=== PATIENT | female | born 1995 | race African-American/Black ===

== ENCOUNTER 2016-06-01 02:56 | Emergency (ER) | payer MEDICAID, OTHER ==
[~2016-06-01] VITALS: Ht 167.6 cm; Wt 68.0 kg
[~2016-06-01 02:56] MED LIST: ACHD5005 PO; CPR500T PO; CYCL10TA9 PO; DICY10CA26 PO; DOXY100C2 PO; FLUC200T45 PO; GUAI120S36 PO; HYDR25CA5 PO; IBP600T1 PO; IBUP800T26 PO; LORA0.5T; METR500T PO; METR500T21 PO; NORG1TAB15; OCP; PHEN200T27 PO; PHENTERMINE; PREN-115 PO; PREN1TAB71 PO; SERT50TA PO; TRAM50TA2 PO; [UNRECOGNIZED DRUG - OTHER]
[2016-06-01 04:48] LABS: BILIRUBIN,URINE NEGATIVE (NEGATIVE); KETONES,URINE 1+ (NEGATIVE); LEUKOCYTE ESTERASE ,URINE 1+ (NEGATIVE); NITRITE,URINE NEGATIVE (NEGATIVE); PH,URINE 5 (5-9); PROTEIN,URINE 2+ (NEGATIVE); UROBILINOGEN,URINE 1 MG/DL (NORMAL)
[2016-06-01 04:58] LABS: SQUAMOUS EPITHELIAL CELL,UR RARE /HPF; WBC,URINE 0-2 /HPF
[2016-06-01] MEDS ORDERED: cefTRIAXone 1 GM (ROCEPHIN) VIAL IM ONE (06:00)
[2016-06-01] MEDS ORDERED: LIDOCAINE 1% INJ 20 ML (XYLOCAINE) VIAL INJ ONE (06:00)
--- NOTE | 2016-06-01 06:20 | ED GU-Female ---
General Chief Complaint: -Female Stated Complaint: POSS ANXIETY ATTACK,BODY GOING NUMB,SOB Nursing Sepsis Screen: No Definite Risk Source: patient, family Exam Limitations: intoxication History of Present Illness Time seen by provider: 04:17 Initial Comments Here with or significant other reports that she has been very anxious. Patient had difficulty with describing her complaint. She has twitching-type movements and was unable to state exactly what she was here before for a while but then states that she was having difficulty with pain and was anxious. States that she is status post delivery last Monday. Patient denies any drugs initially. Denies any injury, chest pain or breathing problems. Patient appears to be under the influence of drugs. Timing/Duration: this morning Severity/Quality: mild Location: suprapubic Associated Symptoms: abdominal painNo fever/chills, No nausea/vomiting Allergies and Home Medications Allergies Coded Allergies: iodine (Unverified Allergy, Unknown, 08/09/13) Home Medications No Active Prescriptions or Reported Meds Constitutional: see HPINo chills, No fever Respiratory: no symptoms reportedNo dyspnea on exertion, No short of breath Cardiovascular: no symptoms reportedNo chest pain, No edema Gastrointestinal: see HPINo diarrhea, No nausea, No vomiting Genitourinary: denies dysuria, pain Musculoskeletal: no symptoms reported Skin: no symptoms reported Psychiatric/Neurological: See HPI Past Erkvdek-Jzagas-Awifrt Hx Patient Social History Recreational Drug Use: Yes (methamphetamine) Type Used: Cigarettes Recent Foreign Travel: No Contact w/Someone Who Travel: No Recent Infectious Disease Expo: No Immunizations Up To Date Tetanus Booster (TDap): Less than 5yrs PED Vaccines UTD: Yes Date of Influenza Vaccine: Feb 05, 2013 Surgeries HX Surgeries: Yes (WISDOM TEETH EXTRACTED 2008) Respiratory Hx Respiratory Disorders: Yes Respiratory Disorders: Asthma Cardiovascular Hx Cardiac Disorders: No Neurological Hx Neurological Disorders: No Reproductive System Hx Reproductive Disorders: No Sexually Transmitted Disease: Yes HIV/AIDS: No Female Reproductive Disorders: Denies, Ovarian Cyst Genitourinary Hx Genitourinary Disorders: No Gastrointestinal Hx Gastrointestinal Disorders: Yes Gastrointestinal Disorders: Chronic Constipation Musculoskeletal Hx Musculoskeletal Disorders: Yes (CARPEL TUNNEL IN RIGHT WRIST) Endocrine Hx Endocrine Disorders: Yes (ENLARGED THYROID) HEENT HX ENT Disorders: No Cancer Hx Cancer: No Psychosocial Hx Psychiatric Problems: Yes (OVERDOSED ON XANAX 08/13/15) Behavioral Health Disorders: Anxiety, Suicide Attempts, Depression Integumentary HX Skin/Integumentary Disorder: No Blood Transfusions Hx Blood Disorders: No Adverse Reaction to a Blood Tr: No Reviewed Nursing Assessment Reviewed/Agree w Nursing PMH: Yes Family Medical History Family Medial History: BLOOD CLOTS 19 MOTHER Drug abuse 19 MOTHER FHx: cancer 19 MOTHER Myocardial infarction PACEMAKER IN PLACE 19 MOTHER Physical Exam Vital Signs Vital Sign - Last 12Hours 06/01/16 03:55 Temp 97.5 Pulse 87 Resp 20 B/P 136/87 Pulse Ox 99 O2 Delivery Room Air Capillary Refill : Less Than 3 Seconds General Appearance: WD/WN no apparent distress Neck: full range of motion supple Cardiovascular: regular rate, rhythm no murmur Respiratory: lungs clear normal breath sounds Gastrointestinal: non tender soft Back: normal inspection no CVA tenderness no vertebral tenderness Extremities: normal range of motion non-tender Neurologic/Psychiatric: oriented x 3 other (patient is sleepy but answers questions when waking.) Skin: normal color warm/dry Progress/Results/Core Measures Results/Orders Lab Results Laboratory Tests Test 06/01/16 04:39 Range/Units Ur Tricyclic Antidepressants Screen NEGATIVE NEGATIVE Urine Amphetamines Screen POSITIVE H NEGATIVE Urine Bacteria FEW H /HPF Urine Barbiturates Screen NEGATIVE NEGATIVE Urine Benzodiazepines Screen NEGATIVE NEGATIVE Urine Bilirubin NEGATIVE NEGATIVE Urine Cannabinoids Screen NEGATIVE NEGATIVE Urine Casts NONE /LPF Urine Clarity CLEAR Urine Cocaine Screen NEGATIVE NEGATIVE Urine Color YELLOW Urine Crystals NONE /LPF Urine Culture Indicated YES Urine Glucose (UA) NEGATIVE NEGATIVE Urine Ketones 1+ H NEGATIVE Urine Leukocyte Esterase 1+ H NEGATIVE Urine Methadone Screen NEGATIVE NEGATIVE Urine Methamphetamines Screen POSITIVE H NEGATIVE Urine Mucus MODERATE H /LPF Urine Nitrite NEGATIVE NEGATIVE Urine Opiates Screen NEGATIVE NEGATIVE Urine Oxycodone Screen NEGATIVE NEGATIVE Urine Phencyclidine Screen NEGATIVE NEGATIVE Urine Test POSITIVE NEGATIVE Urine Propoxyphene Screen NEGATIVE NEGATIVE Urine Protein 2+ H NEGATIVE Urine RBC 0-2 /HPF Urine RBC (Auto) 4+ H NEGATIVE Urine Specific [place] 1.025 H 1.016-1.022 Urine Squamous Epithelial Cells RARE /HPF Urine Urobilinogen 1 NORMAL MG/DL Urine WBC 0-2 /HPF Urine pH 5 5-9 My Orders Orders-LEANDRO STEVENS MD Drug Screen Stat (Urine) (06/01/16 04:17) Ua Culture If Indicated (06/01/16 04:17) Urine Bedside (06/01/16 04:18) Hcg,Qualitative Urine (06/01/16 04:43) Urine Culture (06/01/16 04:39) Ceftriaxone Injection (Rocephin Injectio (06/01/16 06:00) Lidocaine 1% Injection (Xylocaine 1% Inj (06/01/16 06:00) Vital Signs/I&O Vital Sign - Last 12Hours 06/01/16 03:55 Temp 97.5 Pulse 87 Resp 20 B/P 136/87 Pulse Ox 99 O2 Delivery Room Air Blood Pressure Mean: 103 Progress Note : Progress Note Seen and evaluated. UA and UDS ordered. Patient has positive . We did verify that patient had delivery at [facility] on 05/23/16. Patient was apparently positive for methamphetamine at that time per report. Patient does not have baby with her and she reportedly has transferred care of the child to someone else per records. Patient now admits to snorting and/or smoking methamphetamine and she is not sure of how much but states it was a medium amount. Patient is able to relay where she is at and when coaxed, remembers that she was having some dysuria. Otherwise denies complaints. UA may be positive for UTI. We will treat this. Rocephin 1 g IM given. Patient does have a history of pelvic pain and bacterial vaginosis. We will treat outpatient with Flagyl. Discharged home with return precautions. Patient verbalize understanding of instructions and agreement with plan. Departure Impression Impression: Primary Impression: Suprapubic abdominal pain Additional Impressions: Urinary tract infection Qualified Code: N30.00 - Acute cystitis without hematuria Methamphetamine abuse Disposition: HOME, SELF-CARE Condition: Stable Departure-Patient Inst. Referrals: [facility] (PC[facility]) Primary Care Physician NIURKA SMITH MD (Family) Primary Care Physician Patient Instructions: Acute Abdomen (Belly Pain), Adult (DC), Methamphetamine, Urinary Tract Infection, Adult (DC) Add. Discharge Instructions: All discharge instructions reviewed with patient and/or family. Voiced understanding. Stop using methamphetamine. Take medications as directed. Drink plenty of fluids. Follow-up with your doctor this week for recheck and further evaluation. Return for worse pain, fever, vomiting, weakness, breathing problems or other concerns as needed. You have prescriptions at [facility] for pick. Take those medications as prescribed. Scripts Metronidazole 500 Mg [id number] Mg PO BID #14 TAB Prov:LEANDRO STEVENS MD 06/01/16 Cephalexin 500 Mg [id number] Mg PO TID #21 TAB Prov:LEANDRO STEVENS MD 06/01/16 LEANDRO STEVENS MD Jun 01, 2016 06:19
[2016-06-01] MEDS ORDERED: METR500T21 PO (06:29)
[2016-06-01] MEDS ORDERED: CEPH500T PO (06:29)
[2016-06-01 07:28] VITALS: BP 120/74
== END 2016-06-01 07:28 | disposition home or self-care (01) ==
LOC: EDUNIT# 02:56 → ER 02:58
DX: R10.2 Pelvic and perineal pain (principal); N39.0 Urinary tract infection, site not specified; F15.10 Other stimulant abuse, uncomplicated
CPT/HCPCS: 51701; 80306; 81000; 84703; 87088; 96372; 99284

== ENCOUNTER → 2016-06-02 | Outpatient (CLI) | payer SELFPAY ==
[~2016-06-02] MED LIST changes: +CEPH500T PO
[2016-06-02 16:29] VITALS: BP 121/80
== END ==
LOC: FNS 16:48
PROVIDERS: ATTEND Emergency Medicine
DX: Z02.89 Encounter for other administrative examinations (principal)

== ENCOUNTER 2017-05-22 18:50 | Outpatient (CLI) | payer SELFPAY ==
[~2017-05-22] VITALS: Ht 162.6 cm; Wt 97.1 kg
[2017-05-22 18:47] VITALS: BP 130/66
[2017-05-22 19:40] LABS: BILIRUBIN,URINE NEGATIVE (NEGATIVE); CLARITY,URINE CLEAR; COLOR,URINE YELLOW; GLUCOSE, URINE (UA) NEGATIVE (NEGATIVE); KETONES,URINE NEGATIVE (NEGATIVE); LEUKOCYTE ESTERASE ,URINE 1+ (NEGATIVE); NITRITE,URINE NEGATIVE (NEGATIVE); PH,URINE 7 (5-9); PROTEIN,URINE NEGATIVE (NEGATIVE); UROBILINOGEN,URINE NORMAL (NORMAL)
[2017-05-22 19:48] LABS: BACTERIA,URINE TRACE /HPF; SQUAMOUS EPITHELIAL CELL,UR 0-2 /HPF; WBC,URINE 0-2 /HPF
[2017-05-22 19:54] LABS: AMPHETAMINE SCREEN, URINE NEGATIVE (NEGATIVE); BARBITURATE SCREEN URINE NEGATIVE (NEGATIVE); BENZODIAZEPINES SCREEN URINE NEGATIVE (NEGATIVE); CANNABINOID SCREEN, URINE NEGATIVE (NEGATIVE); COCAINE SCREEN URINE NEGATIVE (NEGATIVE); METHADONE STAT NEGATIVE (NEGATIVE); METHAMPHETAMINE SCREEN URINE S NEGATIVE (NEGATIVE); OPIATE SCREEN URINE NEGATIVE (NEGATIVE); OXYCODONE STAT NEGATIVE (NEGATIVE); PROPOXYPHENE STAT NEGATIVE (NEGATIVE); TRICYCLIC ANTIDEPRESSANTS SCRE NEGATIVE (NEGATIVE)
--- NOTE | 2017-05-23 16:31 | Physician Query-Final Dx ---
PETER ACOSTA 05/23/17 1631: Clinic Account Progress/Dx Physician Query: Please give diagnosis Date of Service May 22, 2017 at 18:50 SUDARSHAN BAÑUELOS MD 05/26/17 1523: Clinic Account Progress/Dx DIAGNOSIS: Diagnosis Contractions in third trimester PETER ACOSTA May 23, 2017 16:31 SUDARSHAN BAÑUELOS MD May 26, 2017 15:23
== END 2017-05-22 19:40 | disposition home or self-care (01) ==
LOC: WSo 18:50 → LDRP 18:50 → WSo 19:40
PROVIDERS: ATTEND Family Medicine
DX: O47.1 False labor at or after 37 completed weeks of gestation (principal); Z3A.39 39 weeks gestation of pregnancy
CPT/HCPCS: 80306; 81000; 87081; 99214

== ENCOUNTER 2017-06-05 21:09 | Inpatient (IN) | payer MEDICAID ==
[~2017-06-05] VITALS: Ht 162.6 cm; Wt 98.0 kg
[~2017-06-05 21:09] MED LIST changes: -DOCU100C37 PO; -FERR325T18 PO; -IBUP-1773 PO; -PREN-8 PO
[2017-06-05 21:56] LABS: BILIRUBIN,URINE NEGATIVE (NEGATIVE); CLARITY,URINE CLEAR; COLOR,URINE YELLOW; GLUCOSE, URINE (UA) NEGATIVE (NEGATIVE); KETONES,URINE NEGATIVE (NEGATIVE); LEUKOCYTE ESTERASE ,URINE 1+ (NEGATIVE); NITRITE,URINE NEGATIVE (NEGATIVE); PH,URINE 6.5 (5-9); PROTEIN,URINE NEGATIVE (NEGATIVE); UROBILINOGEN,URINE NORMAL (NORMAL)
[2017-06-05] MEDS ORDERED: MINERAL OIL CONCENTRATE 99.9% 15 ML UDC TOP PRN (22:00)
[2017-06-05] MEDS ORDERED: CATHETER FLUSH 10 ML SYR IV SCH (22:00)
[2017-06-05 22:05] LABS: BACTERIA,URINE TRACE /HPF; WBC,URINE 0-2 /HPF
[2017-06-05] MEDS ORDERED: D5 LR IV SOLUTION 1,000 ML IV ONE (22:23)
[2017-06-05 22:34] LABS: AMPHETAMINE SCREEN, URINE NEGATIVE (NEGATIVE); BARBITURATE SCREEN URINE NEGATIVE (NEGATIVE); BENZODIAZEPINES SCREEN URINE NEGATIVE (NEGATIVE); CANNABINOID SCREEN, URINE NEGATIVE (NEGATIVE); COCAINE SCREEN URINE NEGATIVE (NEGATIVE); METHADONE STAT NEGATIVE (NEGATIVE); METHAMPHETAMINE SCREEN URINE S NEGATIVE (NEGATIVE); OPIATE SCREEN URINE NEGATIVE (NEGATIVE); OXYCODONE STAT NEGATIVE (NEGATIVE); PROPOXYPHENE STAT NEGATIVE (NEGATIVE); TRICYCLIC ANTIDEPRESSANTS SCRE NEGATIVE (NEGATIVE)
[2017-06-05 22:38] LABS: BASOPHILS % (AUTO) 0 % (0-10); EOSINOPHILS % (AUTO) 0 % (0-10); HEMATOCRIT 35 % (35-52); HEMOGLOBIN 12.5 G/DL (11.5-16.0); LYMPHOCYTES # (AUTO) 2.2 X 10^3 (1.0-4.0); LYMPHOCYTES % (AUTO) 22 % (12-44); MEAN CORPUSCULAR HEMOGLOBIN 29 PG (25-34); MEAN CORPUSCULAR HGB CONC 35 G/DL (32-36); MEAN CORPUSCULAR VOLUME 83 FL (80-99); MEAN PLATELET VOLUME 11.3 FL (7.4-10.4); MONOCYTES # (AUTO) 0.5 X 10^3 (0.0-1.0); MONOCYTES % (AUTO) 5 % (0-12); NEUTROPHILS # (AUTO) 7.2 X 10^3 (1.8-7.8); NEUTROPHILS % (AUTO) 72 % (42-75); PLATELET COUNT 191 10^3/uL (130-400); RED BLOOD COUNT 4.28 10^6/uL (4.35-5.85); RED CELL DISTRIBUTION WIDTH 14.4 % (10.0-14.5); WHITE BLOOD COUNT 9.9 10^3/uL (4.3-11.0)
[2017-06-05] MEDS ORDERED: ZOLPIDEM 5 MG (AMBIEN) TAB ONE (22:43)
[2017-06-05] MEDS ORDERED: ZOLPIDEM 5 MG (AMBIEN) TAB PO ONE (22:45)
[2017-06-05 23:00] VITALS: BP 137/62
[2017-06-06] VITALS (7 sets, daily range): BP systolic 96–127; BP diastolic 51–80
--- NOTE | 2017-06-06 04:06 | History & Physical-OB ---
OB - Chief Complaint & HPI Date/Time Date of Admission: Date of Admission: Jun 05, 2017 at 21:09 Time Seen by Provider: 04:01 Chief Complaint/History OB-Reason for Admission/Chief: Induction of Labor (postdates, severe oligohydramnios) Hx : 5 Hx Para: 4 Hx Last Menstrual Period: 08/19/2016 Expected Date of Delivery: May 26, 2017 Gestational Age in Weeks: 41 Gestational Age in Days: 4 Indication for induction: post dates, maternal discomfort, other (severe oligohydramnios, deepest vertical pocked 0.5 cm, total EMILY = 1.08) Indication for : other ( intolerance) Admission Nurse Assessment Rev: Yes History of Labs Laboratory Tests Test 06/05/17 21:20 06/05/17 22:25 Range/Units Urine Color YELLOW Urine Clarity CLEAR Urine pH 6.5 5-9 Urine Specific [place] 1.015 L 1.016-1.022 Urine Protein NEGATIVE NEGATIVE Urine Glucose (UA) NEGATIVE NEGATIVE Urine Ketones NEGATIVE NEGATIVE Urine Nitrite NEGATIVE NEGATIVE Urine Bilirubin NEGATIVE NEGATIVE Urine Urobilinogen NORMAL NORMAL MG/DL Urine Leukocyte Esterase 1+ H NEGATIVE Urine RBC (Auto) NEGATIVE NEGATIVE Urine RBC NONE /HPF Urine WBC 0-2 /HPF Urine Squamous Epithelial Cells 10-25 H /HPF Urine Crystals NONE /LPF Urine Bacteria TRACE /HPF Urine Casts NONE /LPF Urine Mucus LARGE H /LPF Urine Culture Indicated NO Urine Opiates Screen NEGATIVE NEGATIVE Urine Oxycodone Screen NEGATIVE NEGATIVE Urine Methadone Screen NEGATIVE NEGATIVE Urine Propoxyphene Screen NEGATIVE NEGATIVE Urine Barbiturates Screen NEGATIVE NEGATIVE Ur Tricyclic Antidepressants Screen NEGATIVE NEGATIVE Urine Phencyclidine Screen NEGATIVE NEGATIVE Urine Amphetamines Screen NEGATIVE NEGATIVE Urine Methamphetamines Screen NEGATIVE NEGATIVE Urine Benzodiazepines Screen NEGATIVE NEGATIVE Urine Cocaine Screen NEGATIVE NEGATIVE Urine Cannabinoids Screen NEGATIVE NEGATIVE White Blood Count 9.9 4.3-11.0 10^3/uL Red Blood Count 4.28 L 4.35-5.85 10^6/uL Hemoglobin 12.5 11.5-16.0 G/DL Hematocrit 35 35-52 % Mean Corpuscular Volume 83 80-99 FL Mean Corpuscular Hemoglobin 29 25-34 PG Mean Corpuscular Hemoglobin Concent 35 32-36 G/DL Red Cell Distribution Width 14.4 10.0-14.5 % Platelet Count 191 130-400 10^3/uL Mean Platelet Volume 11.3 H 7.4-10.4 FL Neutrophils (%) (Auto) 72 42-75 % Lymphocytes (%) (Auto) 22 12-44 % Monocytes (%) (Auto) 5 0-12 % Eosinophils (%) (Auto) 0 0-10 % Basophils (%) (Auto) 0 0-10 % Neutrophils # (Auto) 7.2 1.8-7.8 X 10^3 Lymphocytes # (Auto) 2.2 1.0-4.0 X 10^3 Monocytes # (Auto) 0.5 0.0-1.0 X 10^3 Eosinophils # (Auto) 0.0 0.0-0.3 10^3/uL Basophils # (Auto) 0.0 0.0-0.1 10^3/uL Rubella Immune per clinic chart GBS negative per swab collected at hospital 05/26/17 Other labs are pending Allergies and Home Medications Allergies Coded Allergies: iodine (Unverified Allergy, Unknown, 08/09/13) Home Medications Vit W-Ca,Fe,FA(<1 mg) 1 Each Tablet, 1 EACH PO DAILY for 30 Days, #30 Ref 11 Prescribed by: CHRISTIANE TAYLOR on 06/06/17 0540 OB - History Hx of Present Care: Yes Ultrasounds: Abnormal US findings (severe oligo on US 06/05/17; other records from [place] pending at time of H&P) Obstetrical Complications: Other (sporadic care) Medical Complications: None Information Induced Hypertension: No Maternal Gestational Diabetes: No Hemorrhage: Yes (EBL 500 cc with delivery in [address], documented as PPH by Dr. Sorensen) Obstetrical History Hx : 5 Hx Para: 4 Hx # Term Pregnancies: 4 Hx # Pregnancies: 0 Number of Living Children: 4 Hx Termination: No Hx Total # of Abortions (Spona: 1 Hx Multiple Gestation: No Hx Ectopic : No Hx Stillbirth: No Hx Complication: No Hx Induced Hypertens: No Hx Maternal Gestational Diabet: No Hx Hemorrhage: Yes Delivery History Hx Dystocia: No Hx Forceps Assisted Delivery: No Hx Vacuum Extraction Assisted: No Hx Placenta Abnormality: No Hx Distress: No Hx Large For Gestational Age I: No Hx Small for Gestational Age I: No Hx Section: No Hx Vaginal Delivery Post C-Sec: No Hx Blood Disorders: No Adverse Rxn to Tranfusion: No Patient Past Medical History Methamphetamine abuse THC abuse Tobacco abuse Axiety Depression Bacterial Vaginosis Trich Asthma - as child Hx of ETOH abuse Chronic constipation Hx of suicide attempt - Xanax overdose 08/13/15 Social History/Family History HIV/AIDS: No Recent Infectious Disease Expo: No Sexually Transmitted Disease: Yes (2008) Alcohol Use: Past History Recreational Drug Use: Yes (Previously methamphetamine use) Smoking Cessation: Current every day smoker 2nd Hand Smoke Exposure: Yes Significant Family Hx Mother meth addict, also with history of blood clots and uterine and cervical cancer; meth addict Immunizations Hepatitis A: No Hepatitis B: No Tetanus Booster (TDap): Less than 5yrs Date of Influenza Vaccine: Apr 10, 2017 Rubella: immune RPR/VDRL: Unknown GBS Status: Negative HBsAG: Unknown OB - Admission Exam Physical Exam Vitals: Vital Signs 06/05/17 06/06/17 23:00 00:51 Temp 98.9 Pulse 77 Resp 18 B/P (MAP) 127/80 (96) O2 Delivery Room Air HEENT: NCAT Heart: Rhythm Normal Lungs: Clear, Equal Abdomen: Gravid Extremities: Normal Reflexes: Normal Cervical Dilatation: 3cm Effacement: 50% Station: -2 Membranes: Intact Heart Rate: 140's Accelerations: Accelerations Present Decelerations: Prolonged Decelerations Detention Variability: Average (6-25) Contractions on Admission: >10 Minutes Apart Date/Time Contractions Began;: pt unaware of contractions Intensity: Mild Mahajan Scoring Tool (Modified) Dilation (cm): 3-4cm (2) Effacement (%): 31-51% (1) Descent/Station: -2 (1) Cervix Consistency: Soft (2) Cervix Position: Middle/Mid-Position (1) Add 1 point for: Each previous vaginal delivery (1) Subtract 1 point for: Postdate (-1) Mahajan Score: 10 Labs Laboratory Tests Test 06/05/17 21:20 06/05/17 22:25 Range/Units Urine Color YELLOW Urine Clarity CLEAR Urine pH 6.5 5-9 Urine Specific [place] 1.015 L 1.016-1.022 Urine Protein NEGATIVE NEGATIVE Urine Glucose (UA) NEGATIVE NEGATIVE Urine Ketones NEGATIVE NEGATIVE Urine Nitrite NEGATIVE NEGATIVE Urine Bilirubin NEGATIVE NEGATIVE Urine Urobilinogen NORMAL NORMAL MG/DL Urine Leukocyte Esterase 1+ H NEGATIVE Urine RBC (Auto) NEGATIVE NEGATIVE Urine RBC NONE /HPF Urine WBC 0-2 /HPF Urine Squamous Epithelial Cells 10-25 H /HPF Urine Crystals NONE /LPF Urine Bacteria TRACE /HPF Urine Casts NONE /LPF Urine Mucus LARGE H /LPF Urine Culture Indicated NO Urine Opiates Screen NEGATIVE NEGATIVE Urine Oxycodone Screen NEGATIVE NEGATIVE Urine Methadone Screen NEGATIVE NEGATIVE Urine Propoxyphene Screen NEGATIVE NEGATIVE Urine Barbiturates Screen NEGATIVE NEGATIVE Ur Tricyclic Antidepressants Screen NEGATIVE NEGATIVE Urine Phencyclidine Screen NEGATIVE NEGATIVE Urine Amphetamines Screen NEGATIVE NEGATIVE Urine Methamphetamines Screen NEGATIVE NEGATIVE Urine Benzodiazepines Screen NEGATIVE NEGATIVE Urine Cocaine Screen NEGATIVE NEGATIVE Urine Cannabinoids Screen NEGATIVE NEGATIVE White Blood Count 9.9 4.3-11.0 10^3/uL Red Blood Count 4.28 L 4.35-5.85 10^6/uL Hemoglobin 12.5 11.5-16.0 G/DL Hematocrit 35 35-52 % Mean Corpuscular Volume 83 80-99 FL Mean Corpuscular Hemoglobin 29 25-34 PG Mean Corpuscular Hemoglobin Concent 35 32-36 G/DL Red Cell Distribution Width 14.4 10.0-14.5 % Platelet Count 191 130-400 10^3/uL Mean Platelet Volume 11.3 H 7.4-10.4 FL Neutrophils (%) (Auto) 72 42-75 % Lymphocytes (%) (Auto) 22 12-44 % Monocytes (%) (Auto) 5 0-12 % Eosinophils (%) (Auto) 0 0-10 % Basophils (%) (Auto) 0 0-10 % Neutrophils # (Auto) 7.2 1.8-7.8 X 10^3 Lymphocytes # (Auto) 2.2 1.0-4.0 X 10^3 Monocytes # (Auto) 0.5 0.0-1.0 X 10^3 Eosinophils # (Auto) 0.0 0.0-0.3 10^3/uL Basophils # (Auto) 0.0 0.0-0.1 10^3/uL OB - Assessment/Plan/Diagnosis Assessment Assessment: other (severe oligohydramnios) Plan Plan: Section (spoke with Dr. Adrian at 0430, given severe oligo, decelerations, will give IV fluid bolus and plan to follow scheduled 0730 case unless patient has further decels, in which case will proceed with surgical delivery immediately) Other Plan -patient came to clinic for OB intake visit with this provider; in this area she had one previous visit with Dr. Bañuelos -pt reports she was up from [place] visiting her mother; she does not have custody of her other four children as she willingly gave custody to her and terminated her rights (per patient) - is not FOB, pt reports he had a vasectomy before she got -pt with long history of meth abuse, including during this , but reports having stopped in March 2017 and has been clean since then -Limited OB US showed EMILY 1.08 yesterday afternoon; patient was contact and told to return to hospital and that she would be monitored until her induction could be initiated in the AM -overnight patient with several prolonged decels lasting 2-4 minutes with lowest point being ~50 bmp and gradual return to baseline -Dr. Adrian OB commercial collections driver; contacted, given patient history and strip reviewed, including decels and patient history as well as severe oligo; will plan on surgical delivery to follow 0730 case this AM, sooner if needed based on status -risks and benefits of surgical delivery were discussed with patient, who is agreeable to proceeding with surgical delivery as it is highly unlikely that her fetus will tolerate labor contractions Discharge Diagnosis Diagnosis: Post dates at 41 4/7 wks by LMP Sporadic Care Methamphetamine use during first and second trimesters Tobacco Abuse Anxiety Depression Bacterial Vaginosis Asthma Hx of alcohol abuse - remote history Hx of suicide attempt - August 2015 Copy Copies To 1: SUDARSHAN BAÑUELOS MD; VILMA ADRIAN MARGARET E DO Jun 06, 2017 04:06
[2017-06-06] MEDS ORDERED: LACTATED RINGERS 1,000 ML IV ONE ×4 (04:45→08:47)
[2017-06-06] MEDS ORDERED: PREN-8 PO (05:40)
[2017-06-06] MEDS ORDERED: D5 LR IV SOLUTION 1,000 ML IV SCH ×2 (06:00→10:17)
[2017-06-06] MEDS ORDERED: METOCLOPRAMIDE INJ 10 MG/2 ML (REGLAN) ONE (07:29)
[2017-06-06] MEDS ORDERED: CITRIC ACID/SOB CIT (BICITRA) 30 ML UDC ONE (07:29)
[2017-06-06] MEDS ORDERED: FAMOTIDINE 20MG/2ML IV (PEPCID) ONE (07:29)
[2017-06-06] MEDS ORDERED: morphine PF (DURAMORPH) 10 MG/10 ML AMP ONE (08:19)
[2017-06-06] MEDS ORDERED: OXYTOCIN/NORMAL SALINE 0 ML IV ONE (08:19)
--- NOTE | 2017-06-06 08:41 | Progress Note-Pre Operative ---
Pre-Operative Progress Note H&P Reviewed The H&P was reviewed, patient examined and no changes noted. Date Seen by Provider: Jun 06, 2017 Time Seen by Provider: 08:35 Date H&P Reviewed: Jun 06, 2017 Time H&P Reviewed: 08:30 Pre-Operative Diagnosis: Oligohydramnios, fetl decelerations, unfavorable cervix VILMA ADRIAN DO Jun 06, 2017 08:41
[2017-06-06] MEDS ORDERED: ceFAZolin 1,000 MG (ANCEF) VIAL ONE (08:47)
[2017-06-06] MEDS ORDERED: NS (IVPB) 50 ML ONE (08:47)
[2017-06-06] MEDS: LACTATED RINGERS 1,000 ML IV PRN ×2 (08:50→09:59)
[2017-06-06] MEDS ORDERED: METOCLOPRAMIDE INJ 10 MG/2 ML (REGLAN) IVP SCH (09:15)
[2017-06-06] MEDS ORDERED: ceFAZolin INJECTION 1,000 MG in NS (IVPB) 50 ML IV ONE (09:15)
[2017-06-06] MEDS ORDERED: ANTACID SUSP 30 ML UDC (MYLANTA) PO PRN (09:15)
[2017-06-06] MEDS ORDERED: OXYTOCIN/NORMAL SALINE 500 ML IV ONE (09:37)
[2017-06-06] MEDS ORDERED: KETOROLAC 30 MG/ML VIAL ONE (09:37)
[2017-06-06] MEDS: KETOROLAC 30 MG/ML VIAL IVP SCH ×2 (09:40→15:47)
[2017-06-06] MEDS ORDERED: ONDANSETRON 4 MG/2 ML (SDV) Z0FRAN ONE (09:44)
[2017-06-06] MEDS ORDERED: LACTATED RINGERS 1,000 ML IV SCH (10:05)
[2017-06-06] MEDS ORDERED: ONDANSETRON 4 MG/2 ML (SDV) Z0FRAN IV PRN (10:15)
[2017-06-06] MEDS ORDERED: NALOXONE 0.4 MG/ML 1 ML (NARCAN) VIAL IM PRN (10:15)
[2017-06-06] MEDS ORDERED: METOCLOPRAMIDE INJ 10 MG/2 ML (REGLAN) IV PRN (10:15)
[2017-06-06] MEDS ORDERED: diphenhydrAMINE 50 MG/ML INJ (BENADRYL) IV PRN (10:15)
[2017-06-06] MEDS ORDERED: OXYTOCIN/NORMAL SALINE 500 ML IV SCH (10:17)
[2017-06-06] MEDS ORDERED: ONDANSETRON 4 MG/2 ML (SDV) Z0FRAN IVP PRN (10:30)
[2017-06-06] MEDS ORDERED: TETANUS,DIPTH,PERTUSS P/F (BOOSTRIX) 0.5 ML VIAL IM SCH (10:30)
[2017-06-06] MEDS ORDERED: HYDROmorphone (DILAUDID) 2 MG/ML VIAL IVP PRN (10:30)
[2017-06-06] MEDS ORDERED: MEASLES,MUMPS,RUBELLA 1 EA INJ SC SCH (10:30)
--- NOTE | 2017-06-06 10:32 | Cesarean Section Operative ---
Procedure Procedure Note Pre-operative Diagnosis: Veronica Christiansen is a 22 /Para 5 / 4, Gestational Age 41 4/7 weeks, severe oligohydramnios, decelerations ( spontaneous), non favorable cervix. Post-operative Diagnosis: same Procedure: Primary low transverse section Physician: VILMA ADRIAN Tanyard Worker: Katie Francis DO Estimated blood loss: mL Disposition: stable Findings: Viable male , Apgars8/9, weight 8#9, intact placenta, 3vc, normal appearing uterus, tubes, and ovaries. Indications:Veronica Christiansen is a 22 /Para 5 / 4,Gestational Age 41 4/ 7 weeks for primary section due to severe oligohydramnios and decelerations, non favorable cervix. She has been seen at [facility] for care only the last few weeks. She started care in [place] and presented to [place] very late in . Apparently she had not had a anatomy survey so had this day before yesterday. This showed appropriate dating and EMILY < 1. MVP was < 1. She was admitted with plan to proceed with induction this morning. However, prior to induction, she began having spontaneous decelerations. Her cervix was not favorable. Decision was made to proceed with section and I was consulted. Procedure Details: The patient was seen in pre-op and the procedure was discussed with the patient in full, including the risks, benefits, and alternatives. All questions were answered. The patient was taken to the operating room and a time out was performed, verifying patient and procedure. After spinal anesthesia was placed by our anesthesia colleagues, the patient was placed in the dorsal supine with leftward tilt for uterine displacement.~ Her abdomen was then prepped and draped in the typical sterile fashion. A Pfannenstiel skin incision was made using a scalpel and carried down through the underlying fascia. The fascia was incised in the midline and tented up using Phylicia clamps. On both the inferior and superior fascia side the rectus muscle was dissected off bluntly and sharply using Fitch scissors. The peritoneum was identified and entered bluntly in the midline. This was then stretched laterally using manual strength. After entering the abdominal cavity and confirming lack of intraperitoneal adhesions, a large Yury retractor was placed and the lower uterine segment was visualized. ~ A scalpel was utilized to make a low transverse uterine incision. Amniotomy was performed with an Allis clamp with return of thick green fluid. The 's head was grasped and brought to the level of the incision. Fundal pressure was applied and was delivered without difficulty. Silastic suction was used to assist in the delivery of the head. After the umbilical cord was clamped and cut, the was immediately handed off to the pediatric staff. A sample of cord blood was then obtained. The placenta was delivered intact via uterine massage. The uterus was cleared of all clots and debris. The uterine incision was closed using 0 Vicryl in a running locked fashion. A second imbricated layer was placed using 0 Vicryl in a running fashion as well. The uterus was flexed forward and the posterior rectouterine space was inspected and cleared of all clots and debris. Again the hysterotomy site was examined and hemostasis was observed. The bilateral tubes and ovaries appeared normal. The abdominal gutters were cleared of all clots and debris. A final check of the uterine incision showed it to be hemostatic. The abdomen was copiously irrigated. Intercede was placed over the incision. The peritoneum was closed using 3-0 Vicryl in a running fashion. the rectus muscles were reapproximated with a figure of eight stitch of 3-0 vicryl. The fascia was closed with 0 Vicryl in a running fashion. The subcutaneous space was hemostatic, and irrigated. The subcutaneous space was closed with 3-0 Vicryl in several single interrupted stitches. The skin was then closed using 4- 0 Monocryl in a running subcuticular fashion. The skin edges were reapproximated together and were hemostatic. A pressure dressing was applied. All sponge, lap and needle counts were correct at the end of the procedure per nursing. Vitals - Labs Vital Signs - I&O Vital Signs Date Time Temp Pulse Resp B/P (MAP) Pulse Ox O2 Delivery O2 Flow Rate FiO2 06/06/17 04:45 98.5 71 18 119/59 (79) Non Rebreather 10.00 06/06/17 03:30 Non Rebreather 10.00 06/06/17 00:51 98.9 77 18 127/80 (96) 06/05/17 23:00 97.8 83 18 137/62 (87) Room Air I & O 06/06/17 07:00 Intake Total 2000 ml Balance 2000 ml Labs Laboratory Tests 06/05/17 21:20: Urine Color YELLOW, Urine Clarity CLEAR, Urine pH 6.5, Urine Specific [place] 1.015L, Urine Protein NEGATIVE, Urine Glucose (UA) NEGATIVE, Urine Ketones NEGATIVE, Urine Nitrite NEGATIVE, Urine Bilirubin NEGATIVE, Urine Urobilinogen NORMAL, Urine Leukocyte Esterase 1+H, Urine RBC (Auto) NEGATIVE, Urine RBC NONE , Urine WBC 0-2, Urine Squamous Epithelial Cells 10-25H, Urine Crystals NONE, Urine Bacteria TRACE, Urine Casts NONE, Urine Mucus LARGEH, Urine Culture Indicated NO, Urine Opiates Screen NEGATIVE, Urine Oxycodone Screen NEGATIVE, Urine Methadone Screen NEGATIVE, Urine Propoxyphene Screen NEGATIVE, Urine Barbiturates Screen NEGATIVE, Ur Tricyclic Antidepressants Screen NEGATIVE, Urine Phencyclidine Screen NEGATIVE, Urine Amphetamines Screen NEGATIVE, Urine Methamphetamines Screen NEGATIVE, Urine Benzodiazepines Screen NEGATIVE, Urine Cocaine Screen NEGATIVE, Urine Cannabinoids Screen NEGATIVE 06/05/17 22:25: White Blood Count 9.9, Red Blood Count 4.28L, Hemoglobin 12.5, Hematocrit 35, Mean Corpuscular Volume 83, Mean Corpuscular Hemoglobin 29, Mean Corpuscular Hemoglobin Concent 35, Red Cell Distribution Width 14.4, Platelet Count 191, Mean Platelet Volume 11.3H, Neutrophils (%) (Auto) 72, Lymphocytes (%) (Auto) 22 , Monocytes (%) (Auto) 5, Eosinophils (%) (Auto) 0, Basophils (%) (Auto) 0, Neutrophils # (Auto) 7.2, Lymphocytes # (Auto) 2.2, Monocytes # (Auto) 0.5, Eosinophils # (Auto) 0.0, Basophils # (Auto) 0.0 VILMA ADRIAN DO Jun 06, 2017 10:32
[2017-06-06] MEDS ORDERED: CATHETER FLUSH 10 ML SYR IV SCH (14:00)
[2017-06-06] MEDS ORDERED: IBUPROFEN 600 MG (MOTRIN) TAB PO ONE (21:08)
[2017-06-06] MEDS: DOCUSATE SODIUM 100 MG (COLACE) CAP PO SCH (21:34)
[2017-06-06] MEDS: IBUPROFEN 600 MG (MOTRIN) TAB PO SCH (21:34)
[2017-06-06] MEDS: HYDROcodone/APAP 5 MG/325 MG (LORTAB) TAB PO PRN (21:36)
[2017-06-06] MEDS ORDERED: diphenhydrAMINE 25 MG TAB (BENADRYL) PO PRN (23:15)
[2017-06-07 00:25] VITALS: BP 115/70
[2017-06-07] MEDS ORDERED: IBUPROFEN 600 MG (MOTRIN) TAB PO ONE (03:15)
[2017-06-07] MEDS: IBUPROFEN 600 MG (MOTRIN) TAB PO SCH ×4 (04:48→23:00)
[2017-06-07 04:49] VITALS: BP 110/70
[2017-06-07 06:28] LABS: BASOPHILS % (AUTO) 0 % (0-10); EOSINOPHILS # (AUTO) 0.1 10^3/uL (0.0-0.3); EOSINOPHILS % (AUTO) 1 % (0-10); HEMATOCRIT 27 % (35-52); HEMOGLOBIN 9.2 G/DL (11.5-16.0); LYMPHOCYTES # (AUTO) 2.1 X 10^3 (1.0-4.0); LYMPHOCYTES % (AUTO) 24 % (12-44); MEAN CORPUSCULAR HEMOGLOBIN 29 PG (25-34); MEAN CORPUSCULAR HGB CONC 34 G/DL (32-36); MEAN CORPUSCULAR VOLUME 84 FL (80-99); MEAN PLATELET VOLUME 11.5 FL (7.4-10.4); MONOCYTES # (AUTO) 0.5 X 10^3 (0.0-1.0); MONOCYTES % (AUTO) 6 % (0-12); NEUTROPHILS % (AUTO) 70 % (42-75); PLATELET COUNT 139 10^3/uL (130-400); RED BLOOD COUNT 3.22 10^6/uL (4.35-5.85); RED CELL DISTRIBUTION WIDTH 14.3 % (10.0-14.5); WHITE BLOOD COUNT 8.6 10^3/uL (4.3-11.0)
[2017-06-07 08:00] VITALS: BP 102/42
[2017-06-07] MEDS: DOCUSATE SODIUM 100 MG (COLACE) CAP PO SCH ×2 (08:12→19:40)
[2017-06-07] MEDS: PRENATAL VITAMIN 1 EA TAB PO SCH ×2 (08:12→19:41)
--- NOTE | 2017-06-07 08:31 | Postpartum Progress Note ---
Post Op Post-operative Day #1 s/p PLTCS oligohydramnios, decelerations, not in labor Patient apparently left the floor last night and got locked out of the building (did not tell RN she was leaving). Still had IV She then had to walk around the building in the cold to get in through the ED. She Then took a shower (had not been cleared) and bandage was soaked and then bleeding. RN placed pressure dressing. Patient was sleeping and would not wake when I went to examine her and the next time I tried, she was off the floor again. Subjective: Patient is without complaints. Ambulating, voiding after banerjee removed. Tolerating a regular diet without nausea or vomiting. Normal lochia. Pain is well controlled with oral pain medications. Passing flatus. Objective: Laboratory Tests Test 06/07/17 06:01 Range/Units White Blood Count 8.6 4.3-11.0 10^3/uL Red Blood Count 3.22 L 4.35-5.85 10^6/uL Hemoglobin 9.2 #L 11.5-16.0 G/DL Hematocrit 27 L 35-52 % Mean Corpuscular Volume 84 80-99 FL Mean Corpuscular Hemoglobin 29 25-34 PG Mean Corpuscular Hemoglobin Concent 34 32-36 G/DL Red Cell Distribution Width 14.3 10.0-14.5 % Platelet Count 139 130-400 10^3/uL Mean Platelet Volume 11.5 H 7.4-10.4 FL Neutrophils (%) (Auto) 70 42-75 % Lymphocytes (%) (Auto) 24 12-44 % Monocytes (%) (Auto) 6 0-12 % Eosinophils (%) (Auto) 1 0-10 % Basophils (%) (Auto) 0 0-10 % Neutrophils # (Auto) 6.0 1.8-7.8 X 10^3 Lymphocytes # (Auto) 2.1 1.0-4.0 X 10^3 Monocytes # (Auto) 0.5 0.0-1.0 X 10^3 Eosinophils # (Auto) 0.1 0.0-0.3 10^3/uL Basophils # (Auto) 0.0 0.0-0.1 10^3/uL Vital Sign - Last 12Hours 06/06/17 06/07/17 06/07/17 21:30 00:25 04:49 Temp 97.0 98.0 98.4 Pulse 86 71 88 Resp 18 18 18 B/P (MAP) 111/67 (82) 115/70 (85) 110/70 (83) Pulse Ox 100 97 99 Intake and Output 06/07/17 00:00 Intake Total 1500 ml Output Total 300 ml Balance 1200 ml Physical Exam: General - Alert and oriented, no apparent distress Abdomen - Soft, appropriately tender to palpation, non-distended, fundus firm at umbilicus Incision - clean, dry and intact; no erythema or induration, no drainage Extremities - no edema, negative Abby's bilaterally Assessment: 1. post-operative day # 1, status post PLTCS. Recovering well, hemodynamically stable 2. Acute blood loss anemia, iron replaced Plan: Routine post-operative care. Encourage breast feeding. Encourage ambulation. VTE prophylaxis: SCDs. Ferrous sulfate supplementation. Plan for discharge tomorrow Vitals - Labs Vital Signs - I&O Vital Signs Date Time Temp Pulse Resp B/P (MAP) Pulse Ox O2 Delivery O2 Flow Rate FiO2 06/07/17 04:49 98.4 88 18 110/70 (83) 99 06/07/17 00:25 98.0 71 18 115/70 (85) 97 06/06/17 21:30 97.0 86 18 111/67 (82) 100 06/06/17 16:40 60 20 96/51 (66) 99 Room Air 06/06/17 15:50 97.6 63 18 100/60 (73) 98 Room Air 06/06/17 13:35 97.2 63 20 109/53 (71) 99 Room Air 06/06/17 11:45 98.5 80 20 117/62 (80) Non Rebreather 10.00 I & O 06/07/17 07:00 Intake Total 2750 ml Output Total 1150 ml Balance 1600 ml Labs Laboratory Tests 06/07/17 06:01: White Blood Count 8.6, Red Blood Count 3.22L, Hemoglobin 9.2#L, Hematocrit 27L, Mean Corpuscular Volume 84, Mean Corpuscular Hemoglobin 29, Mean Corpuscular Hemoglobin Concent 34, Red Cell Distribution Width 14.3, Platelet Count 139, Mean Platelet Volume 11.5H, Neutrophils (%) (Auto) 70, Lymphocytes (%) (Auto) 24 , Monocytes (%) (Auto) 6, Eosinophils (%) (Auto) 1, Basophils (%) (Auto) 0, Neutrophils # (Auto) 6.0, Lymphocytes # (Auto) 2.1, Monocytes # (Auto) 0.5, Eosinophils # (Auto) 0.1, Basophils # (Auto) 0.0 VILMA ADRIAN DO Jun 07, 2017 08:31
[2017-06-07] MEDS: FERROUS SULF 325 MG (IRON) TAB PO SCH ×2 (11:06→19:43)
[2017-06-07] MEDS: HYDROcodone/APAP 5 MG/325 MG (LORTAB) TAB PO PRN ×2 (11:06→19:40)
[2017-06-07] MEDS: ENOXAPARIN 40 MG/0.4 ML (LOVENOX) SYR SC SCH (11:07)
[2017-06-07 12:00] VITALS: BP 129/81
--- NOTE | 2017-06-07 12:59 | Anesthesia-Regional Post-Op ---
Regional Patient Condition Mental Status: Alert, Oriented x3 Circulation: Same as Pre-Op Headache: Absent Sensation: Full Recovery Motor Block: Absent Post Op Complications Complications None Follow Up Care/Instructions Patient Instructions None needed. Anesthesia/Patient Condition Patient is doing well, no complaints, stable vital signs, no apparent adverse anesthesia problems. GUERO FOSTER DO Jun 07, 2017 12:59
[2017-06-07] MEDS ORDERED: ACHD5005 PO (17:08)
[2017-06-07] MEDS ORDERED: IBUP-1773 PO (17:08)
[2017-06-07] MEDS ORDERED: DOCU100C37 PO (17:08)
[2017-06-07] MEDS ORDERED: FERR325T18 PO (17:08)
[2017-06-07 17:30] VITALS: BP 113/76
[2017-06-07] MEDS: KETOROLAC 30 MG/ML VIAL IVP SCH ×2 (21:14→21:16)
[2017-06-07 23:00] VITALS: BP 117/68
[2017-06-08 05:57] VITALS: BP 110/69
[2017-06-08] MEDS: IBUPROFEN 600 MG (MOTRIN) TAB PO SCH (05:57)
[2017-06-08] MEDS: HYDROcodone/APAP 5 MG/325 MG (LORTAB) TAB PO PRN (06:04)
--- NOTE | 2017-06-08 06:20 | Discharge Inst-Women's Service ---
Discharge Inst-Women's Serv Depart Medication/Instructions New, Converted or Re-Newed RX: RX on Chart Instructions no lifting over 25 lbs, no driving for one week, nothing in the vagina for 6 weeks, keep incision clean and dry Final Diagnosis oligohydramnios decelerations/ intolerance to labor meconium fluid acute blood loss anemia primary section Consults/Follow Up Additional Follow Up: Yes (1 week for incision check with [facility], 6 weeks pp exam with [facility]) Activity Activity: Activity as Tolerated Driving Instructions: No Driving for 1 Week NO SMOKING: NO SMOKING Nothing Inside Vagina: No Douching, No [place], No Tampons Diet Discharge Diet: No Restrictions Symptoms to Report to DrHermelindo: Bleeding Excessive, Pain Increased, Fever Over 101 Degrees F, Vaginal Bleeding Increase, Cramps in Feet or Legs, Vaginal Discharge Foul For Any Problems or Questions: Contact Your Physician Skin/Wound Care Infection Signs and Symptoms: Increased Redness, Foul Odor of Wound, Increased Drainage, Skin Itchy or Has a Rash, Increased Swelling, Temperature Above 101 F Operative Area Clean and Dry: Keep Incision Clean/Dry Stitches/Kvng/Dermabond: Dermabond Bathing Instructions: VILMA Parikh DO Jun 08, 2017 06:20
[2017-06-08] MEDS: DOCUSATE SODIUM 100 MG (COLACE) CAP PO SCH (07:41)
[2017-06-08] MEDS: PRENATAL VITAMIN 1 EA TAB PO SCH (07:41)
[2017-06-08] MEDS: FERROUS SULF 325 MG (IRON) TAB PO SCH (07:41)
[2017-06-08] MEDS: ENOXAPARIN 40 MG/0.4 ML (LOVENOX) SYR SC SCH (07:42)
[2017-06-08 07:45] VITALS: BP 120/68
[2017-06-08 10:00] VITALS: BP 120/68
--- NOTE | 2017-06-08 10:03 | Progress Note-Standard ---
Standard Progress Note Progress Notes/Assess & Plan Date Seen by Provider: Jun 08, 2017 Time Seen by Provider: 07:30 Progress/Assessment & Plan Post-operative Day #2 s/p PLTCS oligohydramnios, decelerations, not in labor Subjective: Patient is without complaints. Ambulating, voiding freely. Tolerating a regular diet without nausea or vomiting. Normal lochia. Pain is well controlled with oral pain medications. Passing flatus. Objective: Vital Sign - Last 24 Hours 06/07/17 06/07/17 06/07/17 06/08/17 12:00 17:30 23:00 05:57 Temp 97.2 97.3 98.4 97.1 Pulse 89 86 105 73 Resp 20 20 18 18 B/P (MAP) 129/81 (97) 113/76 (88) 117/68 (84) 110/69 (83) Pulse Ox 98 98 98 97 06/08/17 07:45 Temp 97.5 Pulse 79 Resp 18 B/P (MAP) 120/68 (85) Pulse Ox 99 Intake and Output 06/07/17 06/07/17 06/08/17 15:00 23:00 07:00 Intake Total 600 ml Balance 600 ml Physical Exam: General - Alert and oriented, no apparent distress Abdomen - Soft, appropriately tender to palpation, non-distended, fundus firm at umbilicus Incision - clean, dry and intact; no erythema or induration, no drainage Extremities - no edema, negative Abby's bilaterally Assessment: 1. post-operative day # 2, status post PLTCS. Recovering well, hemodynamically stable 2. Acute blood loss anemia, iron replaced Plan: Routine post-operative care. Encourage breast feeding. Encourage ambulation. VTE prophylaxis: SCDs. Ferrous sulfate supplementation. Plan for discharge today YEN MORILLO DO Jun 08, 2017 10:03 am
[2017-06-08] MEDS ORDERED: METOCLOPRAMIDE INJ 10 MG/2 ML (REGLAN) IV ONE (16:15)
[2017-06-08] MEDS ORDERED: CITRIC ACID/SOB CIT (BICITRA) 30 ML UDC PO ONE (16:15)
[2017-06-08] MEDS ORDERED: FAMOTIDINE 20MG/2ML IV (PEPCID) IV ONE (16:15)
== END 2017-06-08 10:00 | disposition home or self-care (01) | DRG 765 ==
LOC: LDRP 21:09
PROVIDERS: ADMIT Family Medicine; ATTEND Family Medicine
PROC: 10D00Z1 Extraction of Products of Conception, Low, Open Approach (ICD-10-PCS; principal; 2017-06-06 08:52)
DX: O76 Abnormality in fetal heart rate and rhythm complicating labor and delivery (principal); O41.03X0 Oligohydramnios, third trimester, not applicable or unspecified; O48.0 Post-term pregnancy; O90.81 Anemia of the puerperium; D62 Acute posthemorrhagic anemia; O99.334 Smoking (tobacco) complicating childbirth; F17.210 Nicotine dependence, cigarettes, uncomplicated; Z37.0 Single live birth; Z3A.41 41 weeks gestation of pregnancy
CPT/HCPCS: 36415; 76805; 80306; 81000; 85025; 86703; 86706; 86762; 86780; 86850; 86900; 86901; 94664

== ENCOUNTER → 2017-06-05 | Outpatient (CLI) | payer SELFPAY ==
[~2017-06-05] MED LIST changes: +DOCU100C37 PO; +FERR325T18 PO; +IBUP-1773 PO; +PREN-8 PO
--- NOTE | 2017-06-05 17:34 | Diagnostic Imaging Report ---
INDICATION: Low fluid volume. TECHNIQUE: Multiple real-time grayscale images were obtained over the gravid uterus. COMPARISON: None. FINDINGS: A single live intrauterine is identified with a heart rate of 152 beats per minute. The fetus is in cephalic presentation. There is reduced amniotic fluid throughout. The largest vertical pocket is measured at approximately 0.5 cm. The placenta is anterior and has a normal appearance. Clinical age is 39 weeks 0 days. Biometrical measurements are as follows: Biparietal 9.66 cm, age 39 weeks 4 days. Head circumference 33.82 cm, age 38 weeks 6 days. Abdominal circumference 36.37 cm, age 39 weeks 2 days. Femur length 7.46 cm, age 38 weeks 2 days. Sonographic estimate age: 39 weeks 0 days. Sonographic estimated date of delivery: 06/12/2017. Estimated Weight: 3662 gm (+/- 535 gm). LMP percentile: N/A%. heart rate: 152 beats per minute. number: 1 of 1. IMPRESSION: 1. Limited examination due to severe oligohydramnios. 2. Cephalic presentation. Preliminary report was delivered to the requesting physician. Dictated by: Dictated on workstation # [id number]
== END ==
LOC: RAD 16:34
PROVIDERS: ATTEND Family Medicine
DX: O41.03X0 Oligohydramnios, third trimester, not applicable or unspecified (principal); Z3A.39 39 weeks gestation of pregnancy
CPT/HCPCS: 76805

== ENCOUNTER → 2020-01-29 | Outpatient (CLI) | payer MEDICAID ==
[~2020-01-29] MED LIST changes: +DOCU100C37 PO; +FERR325T18 PO; +IBUP-1773 PO; +METR-145 PO; -METR500T21 PO; +PREN-8 PO; +TRM50T PO
--- NOTE | 2020-01-29 14:40 | Diagnostic Imaging Report ---
INDICATION: dating. TECHNIQUE: Multiple real-time grayscale images were obtained over the gravid uterus. COMPARISON: None FINDINGS: There is a single live fetus in a breech presentation. heart rate was recorded at 147 bpm. Placenta is anterior. Amniotic fluid volume is normal. Cervical length is 3.8 cm. kidneys, bladder and stomach are unremarkable. brain is unremarkable. Four-chamber heart view is limited due to position. In addition, spine is somewhat limited. There is a three-vessel cord with normal insertion. Biometrical measurements are as follows: Biparietal 3.59 cm, age 17 weeks 1 days. Head circumference 13.60 cm, age 17 weeks 1 days. Abdominal circumference 10.99 cm, age 16 weeks 6 days. Femur length 2.28 cm, age 16 weeks 6 days. Sonographic estimate age: 17 weeks 0 days. Sonographic estimated date of delivery: 07/08/2020. Estimated Weight: 173 gm (+/- 25 gm). LMP percentile: 63%. heart rate: 147 beats per minute. number: 1 of 1. IMPRESSION: Single live IUP at 17 weeks 0 days gestational age. Estimated date of confinement sonographically is 07/08/2020. Foot survey is unremarkable, although the four-chamber heart view and spine were somewhat limited due to position. Dictated by: Dictated on workstation # [id number]
== END ==
LOC: RAD 13:00
PROVIDERS: ATTEND Family Medicine
DX: Z34.82 Encounter for supervision of other normal pregnancy, second trimester (principal); Z3A.17 17 weeks gestation of pregnancy
CPT/HCPCS: 76805

== ENCOUNTER → 2020-04-20 | Outpatient (CLI) | payer MEDICAID ==
--- NOTE | 2020-04-20 13:05 | Diagnostic Imaging Report ---
INDICATION: Followup survey TECHNIQUE: Multiple real-time grayscale images were obtained over the gravid uterus. COMPARISON: None 01/29/2020 FINDINGS: The previous OB ultrasound exam of 01/29/2020 there is a single live fetus approximately 17 weeks gestation. There were no abnormality is identified but the four-chamber heart view and the spine were limited. On this exam the fetus is again visualized. The fetus is in breech presentation. heart motion was noted and a rate of 123 bpm is recorded. There were no abnormalities identified. In particular, the heart and spine appear to be within normal limits. The placenta is anterior and superior. The amniotic fluid volume is within normal limits. The growth perimeters were not obtained for this study. Biometrical measurements are as follows: Biparietal cm, age weeks days. Head circumference cm, age weeks days. Abdominal circumference cm, age weeks days. Femur length cm, age weeks days. Sonographic estimate age: weeks days. Sonographic estimated date of delivery: . Estimated Weight: gm (+/- gm). LMP percentile: %. heart rate: beats per minute. number: of . IMPRESSION: 1. There is a single live fetus in breech presentation, approximately 20 weeks 5 days gestation +/- 1 week. The EDC remains 07/08/2020. 2. There are no abnormalities otherwise identified. In particular, the heart and spine appear to be within normal limits. 3. The growth parameters were not obtained for this study. Dictated by: Dictated on workstation # [id number]
== END ==
LOC: RAD 10:00
PROVIDERS: ATTEND Family Medicine
DX: Z34.92 Encounter for supervision of normal pregnancy, unspecified, second trimester (principal); Z3A.00 Weeks of gestation of pregnancy not specified
CPT/HCPCS: 76816

== ENCOUNTER 2020-06-30 06:10 | Inpatient (IN) | payer MEDICAID ==
[2020-06-30] VITALS (13 sets, daily range): BP systolic 124–155; BP diastolic 71–93
[~2020-06-30] VITALS: Ht 162.6 cm; Wt 98.4 kg
[~2020-06-30 06:10] MED LIST changes: +CITRIC ACID/SOB CIT (BICITRA) 30 ML UDC ONE; +FAMOTIDINE 20MG/2ML IV (PEPCID) ONE; +METOCLOPRAMIDE INJ 10 MG/2 ML (REGLAN) ONE; +ceFAZolin 2 GM IV Premixed 0 ML ONE
[2020-06-30] MEDS ORDERED: METOCLOPRAMIDE INJ 10 MG/2 ML (REGLAN) IV ONE (06:30)
[2020-06-30] MEDS ORDERED: CITRIC ACID/SOB CIT (BICITRA) 30 ML UDC PO ONE (06:30)
[2020-06-30] MEDS ORDERED: LACTATED RINGERS 1,000 ML IV PRN ×2 (06:30)
[2020-06-30 06:44] LABS: BILIRUBIN,URINE NEGATIVE (NEGATIVE); CLARITY,URINE CLOUDY; COLOR,URINE YELLOW; GLUCOSE, URINE (UA) NEGATIVE (NEGATIVE); KETONES,URINE NEGATIVE (NEGATIVE); LEUKOCYTE ESTERASE ,URINE TRACE (NEGATIVE); NITRITE,URINE NEGATIVE (NEGATIVE); PROTEIN,URINE NEGATIVE (NEGATIVE)
[2020-06-30 06:54] LABS: BACTERIA,URINE FEW /HPF; WBC,URINE RARE /HPF
[2020-06-30 07:03] LABS: BASOPHILS % (AUTO) 0 % (0-10); EOSINOPHILS # (AUTO) 0.1 10^3/uL (0.0-0.3); EOSINOPHILS % (AUTO) 1 % (0-10); HEMATOCRIT 29 % (35-52); HEMOGLOBIN 9.4 g/dL (11.5-16.0); LYMPHOCYTES # (AUTO) 2.2 10^3/uL (1.0-4.0); LYMPHOCYTES % (AUTO) 29 % (12-44); MEAN CORPUSCULAR HEMOGLOBIN 27 pg (25-34); MEAN CORPUSCULAR HGB CONC 33 g/dL (32-36); MEAN CORPUSCULAR VOLUME 83 fL (80-99); MEAN PLATELET VOLUME 11.4 fL (9.0-12.2); MONOCYTES # (AUTO) 0.7 10^3/uL (0.0-1.0); MONOCYTES % (AUTO) 9 % (0-12); NEUTROPHILS # (AUTO) 4.7 10^3/uL (1.8-7.8); NEUTROPHILS % (AUTO) 60 % (42-75); PLATELET COUNT 174 10^3/uL (130-400); WHITE BLOOD COUNT 7.7 10^3/uL (4.3-11.0)
[2020-06-30 07:11] LABS: CHLORIDE 107 MMOL/L (98-107); SODIUM 136 MMOL/L (135-145)
[2020-06-30 07:12] LABS: CALCIUM 7.6 MG/DL (8.5-10.1)
[2020-06-30] MEDS ORDERED: OXYTOCIN PRE-MIX DRIP 1,000 ML IV ONE (07:12)
[2020-06-30 07:13] LABS: GLUCOSE 85 MG/DL (70-105)
[2020-06-30 07:15] LABS: BILIRUBIN,TOTAL 0.3 MG/DL (0.1-1.0); CARBON DIOXIDE 20 MMOL/L (21-32)
[2020-06-30 07:17] LABS: ALKALINE PHOSPHATASE 165 U/L (40-136); CREATININE SERUM 0.66 MG/DL (0.60-1.30); GFR ESTIMATED > 60
[2020-06-30 07:18] LABS: BUN/CREATININE RATIO 17
[2020-06-30 07:20] LABS: ALANINE AMINOTRANSFERASE 18 U/L (0-55)
[2020-06-30 07:22] LABS: AMPHETAMINE SCREEN, URINE POSITIVE (NEGATIVE); BARBITURATE SCREEN URINE NEGATIVE (NEGATIVE); BENZODIAZEPINES SCREEN URINE POSITIVE (NEGATIVE); CANNABINOID SCREEN, URINE NEGATIVE (NEGATIVE); COCAINE SCREEN URINE NEGATIVE (NEGATIVE); METHADONE STAT NEGATIVE (NEGATIVE); METHAMPHETAMINE SCREEN URINE S POSITIVE (NEGATIVE); OPIATE SCREEN URINE POSITIVE (NEGATIVE); OXYCODONE STAT NEGATIVE (NEGATIVE); PROPOXYPHENE STAT NEGATIVE (NEGATIVE); TRICYCLIC ANTIDEPRESSANTS SCRE NEGATIVE (NEGATIVE)
--- NOTE | 2020-06-30 07:28 | History & Physical-OB/GYN ---
History of Present Illness History of Present Illness Reason for visit/HPI Gestational hypertension previous section Date of Admission Jun 30, 2020 at 06:10 Time Seen by a Provider: 07:00 I consulted on this patient on 06/30/20 07:09 The is a 24 year old female patient of Dr. Sorensen. She was seen in the office yesterday at 38 6/7 weeks after not having been seen since April. EDC is 07/08/2020 based on LMP and second trimester US. She has previous history of CS. BP was elevated in the office yesterday 140/90 and 2+ proteinuria. PIH labs and PC ratio were done yesterday and labs were done but are still pending. Patient states she was diagnosed with Hep C last year and was just beginning treatment with Dr. Rowan in [place], when she had + UCG so she has not had treatment yet. She has a history of multiple drug abuse. Reports that within the last few years had a heroin overdose and then had neurologic complications. She states she is currently stable but sees a neurologist in [place]. She reports that she also has a history of skin lesions and states she has one on her back. Also one on the abdomen that has opened and is draining. She has reported use of methamphetamines, heroin and other illicit drugs but currently states she is not using. she had emergency CS during last due to severe oligohydramnios and decelerations. PN labs - HBsAg - HIV - Rub I VDRL NR GC/Gh- O +/- Attending Physician Vilma Adrian DO Admitting Physician Femi Sorensen MD Consult Allergies and Home Medications Allergies Coded Allergies: iodine (Unverified Allergy, Unknown, 08/09/13) Patient Home Medication List Home Medication List Reviewed: Yes Past [id number] Hx Patient Social History Marrital Status: Number of Children: 5 Number of living children: 5 Employed/Student: unemployed Drug of Choice: current opioids; history of methamphetamines; history of heroin Smoking Status: Current Someday Smoker Cigaretts per day: 5 2nd Hand Smoke Exposure: Yes Recent Hopitalizations: Yes (drug abuse) Have you traveled recently?: No Alcohol Use?: No Substance type: Methamphetamine, Opiates/Opioids, Marijuana Immunizations Up To Date Tetanus Booster (TDap): Less than 5yrs Pediatric: Yes Date of Influenza Vaccine: Apr 10, 2017 Seasonal Allergies Seasonal Allergies: No Surgeries No Section Respiratory Yes (childhood) Asthma Currently Using CPAP: No Currently Using BIPAP: No Cardiovascular No Neurological No Reproductive System : Yes Expected Date of Delivery: Jul 08, 2020 Last Menstrual Period: October 05, 2019 Hx : 7 Hx Para: 5 Hx Total # of Abortions (Spona: 1 Hx Reproductive Disorders: No Sexually Transmitted Disease: Yes (2008) HIV/AIDS: No Female Reproductive Disorders: Denies Genitourinary No Gastrointestinal Yes Chronic Constipation Musculoskeletal No Endocrine History of Endocrine Disorders: No HEENT History of HEENT Disorders: No Cancer No Psychosocial History of Psychiatric Problem: No (suicide attempts 2014 ) Behavioral Health Disorders: Anxiety, Suicide Attempts, Depression Integumentary History of Skin or Integumenta: No Blood Transfusions History of Blood Disorders: No Adverse Reaction to a Blood Tr: No Family Medical History Family Hx: BLOOD CLOTS 19 MOTHER Drug abuse 19 MOTHER FHx: cancer 19 MOTHER Myocardial infarction (PATERNAL SIDE OF FAMILY) PACEMAKER IN PLACE 19 MOTHER Review of Systems Constitutional: no symptoms reported EENTM: no symptoms reported Respiratory: no symptoms reported Cardiovascular: no symptoms reported Gastrointestinal: no symptoms reported Genitourinary: no symptoms reported : Yes Expected Date of Delivery: Jul 08, 2020 LMP: October 05, 2019 Control/STD Prophylaxis: None Musculoskeletal: no symptoms reported Skin: lesions Psychiatric/Neurological: Anxiety, Depressed, Emotional Problems All Other Systems Reviewed Negative Unless Noted: Yes Physical Exam Physical Exam Vital Signs Capillary Refill : Labs Laboratory Tests 06/30/20 06:31: Urine Color YELLOW, Urine Clarity CLOUDY, Urine pH 6.0, Urine Specific [place] 1.025H, Urine Protein 15H, Urine Glucose (UA) NEGATIVE, Urine Ketones NEGATIVE, Urine Nitrite NEGATIVE, Urine Bilirubin NEGATIVE, Urine Urobilinogen 1.0, Urine Leukocyte Esterase TRACEH, Urine RBC (Auto) NEGATIVE, Urine RBC NONE, Urine WBC RARE, Urine Squamous Epithelial Cells 10-25H, Urine Crystals NONE, Urine Bacteria FEWH, Urine Casts NONE, Urine Mucus LARGEH, Urine Culture Indicated NO, Urine Creatinine 212H, Urine Protein/Creatinine Ratio 0.07, Urine Opiates Screen POSITIVEH, Urine Oxycodone Screen NEGATIVE, Urine Methadone Screen NEGATIVE, Urine Propoxyphene Screen NEGATIVE, Urine Barbiturates Screen NEGATIVE, Ur Tricyclic Antidepressants Screen NEGATIVE, Urine Phencyclidine Screen NEGATIVE, Urine Amphetamines Screen POSITIVEH, Urine Methamphetamines Screen POSITIVEH, Urine Benzodiazepines Screen POSITIVEH, Urine Cocaine Screen NEGATIVE, Urine Cannabinoids Screen NEGATIVE 06/30/20 06:45: White Blood Count 7.7, Red Blood Count 3.46L, Hemoglobin 9.4L, Hematocrit 29L, Mean Corpuscular Volume 83, Mean Corpuscular Hemoglobin 27, Mean Corpuscular Hemoglobin Concent 33, Red Cell Distribution Width 13.6, Platelet Count 174, Mean Platelet Volume 11.4, Immature Granulocyte % (Auto) 0, Neutrophils (%) (Auto) 60, Lymphocytes (%) (Auto) 29, Monocytes (%) (Auto) 9, Eosinophils (%) (Auto) 1, Basophils (%) (Auto) 0, Neutrophils # (Auto) 4.7, Lymphocytes # (Auto) 2.2, Monocytes # (Auto) 0.7, Eosinophils # (Auto) 0.1, Basophils # (Auto) 0.0, Immature Granulocyte # (Auto) 0.0, Sodium Level 136, Potassium Level 4.0, Chloride Level 107, Carbon Dioxide Level 20L, Anion Gap 9, Blood Urea Nitrogen 11, Creatinine 0.66, Estimat Glomerular Filtration Rate > 60, BUN/Creatinine Ratio 17, Glucose Level 85, Uric Acid 5.0, Calcium Level 7.6L, Corrected Calcium 8.4L, Total Bilirubin 0.3, Aspartate Amino Transf (AST/SGOT) 29, Alanine Aminotransferase (ALT/SGPT) 18, Alkaline Phosphatase 165H, Total Protein 6.0L, Albumin 3.0L 06/30/20 07:30: General Appearance: No Apparent Distress Respiratory: Chest Non Tender, Lungs Clear, Normal Breath Sounds Cardiovascular: Regular Rate, Rhythm Abdominal: normal bowel sounds Comments 3-4 mm raised lesion on low left paraspinal area consistent with dermatofibroma lesion on right abdomen superior to incisional site, open, ulcerated, but not draining. culture taken Assessment/Plan Assessment and Plan 1. 24 year old Grand multiparous () at 39 weeks based on second trimester US (normal anatomy) 2. previous section 3. gestational hypertension 4. multidrug abuse history 5. hepatis C, non treated Plan repeat section today. she was scheduled for 0730 but she ate powdered donuts at 0400. FWB is reasurring and BP is 130s/70s. labs pending Will post pone CS to 1200. covid swab pending. Admission Diagnosis Admission Status: Inpatient Order (span 2 midnights) Reason for Inpatient Admission: post op section Diagnosis/Problems Diagnosis/Problems (1) Previous section VILMA ADRIAN DO Jun 30, 2020 07:28
[2020-06-30] MEDS ORDERED: fentaNYL INJECTION 100 MCG/2 ML AMP ONE (11:30)
[2020-06-30] MEDS ORDERED: ceFAZolin INJECTION 1,000 MG ONE (11:39)
[2020-06-30] MEDS ORDERED: ONDANSETRON 4 MG/2 ML (SDV) Z0FRAN ONE (11:42)
[2020-06-30] MEDS ORDERED: FAMOTIDINE 20MG/2ML IV (PEPCID) IV ONE (11:45)
[2020-06-30] MEDS ORDERED: BUPIVACAINE 0.5% 30 ML (SENSORCAINE) VIAL ONE ×2 (11:54→12:49)
[2020-06-30] MEDS ORDERED: KETAMINE/NaCl 50 MG/5 ML SYRINGE (ED ONLY) ONE (12:14)
[2020-06-30] MEDS ORDERED: MIDAZOLAM 10 MG/2 ML (VERSED) VIAL ONE (12:27)
[2020-06-30] MEDS ORDERED: proPOfol 200 MG/20 ML (DIPRIVAN) VIAL IV ONE (12:49)
[2020-06-30] MEDS ORDERED: SUCCINYLCHOLINE INJ 100 MG/5 ML SYR/VIAL ONE (12:49)
--- NOTE | 2020-06-30 13:21 | Cesarean Section Operative ---
Procedure Procedure Note Pre-operative Diagnosis: Veronica Christiansen is a 25 /Para 7 / 5, Gestational Age 39 weeks previous section, gestational hypertension, multidrug abuse, hepatitis C non treated. Procedure: Repeat low transverse section Physician: VILMA ADRIAN Concrete Block Mason: Femi Sorensen MD; Nishant Comfort, MS III Estimated blood loss: 400mL Disposition: stable Findings: Viable male infant, Apgars 8/9, weight7 # 13 ounces, intact placenta, 3vc, normal appearing uterus, tubes, and ovaries. Indications: Veronica Christiansen is a 25 /Para 7 / 5,Gestational Age 39 weeks previous section, gestational hypertension, multidrug abuse, hepatitis C non treated. Procedure Details: The patient was seen in pre-op and the procedure was discussed with the patient in full, including the risks, benefits, and alternatives. All questions were answered. The patient was taken to the operating room and a time out was performed, verifying patient and procedure. After spinal anesthesia was placed by our anesthesia colleagues, the patient was placed in the dorsal supine with leftward tilt for uterine displacement.~ Her abdomen was then prepped and draped in the typical sterile fashion. However, she then had a panic attack. And she seemed to not be fully anesthetized. She was initially given ketamine, but then had increased screaming and panicking. FHT were checked sterilely and were still 128-130. Because the anesthesia team was unable to calm her down or keep her from coming up off the table, she was put under general anesthesia. One the anesthesia was found to be adequate, a Pfannenstiel skin incision was made using a scalpel and carried down through the underlying fascia. The fascia was incised in the midline. The muscles were bluntly and the peritoneum was identified and entered bluntly in the midline. This was then stretched laterally using manual strength. After entering the abdominal cavity and confirming lack of intraperitoneal adhesions, an extra large Yury retractor was placed and the lower uterine segment was visualized. A scalpel was utilized to make a low transverse uterine incision. Amniotomy was performed with an Allis clamp with return of green tinged (meconium) fluid. The infant's head was grasped and brought to the level of the incision. Fundal pressure was applied and infant was delivered without difficulty. Mouth and nares were suctioned with bulb suction. After the umbilical cord was clamped and cut, the infant was handed off to the pediatric staff. A sample of cord blood was then obtained. The placenta was delivered intact via uterine massage. The uterus was cleared of all clots and debris. The uterine incision was closed using 0 Vicryl in a running locked fashion. A second imbricated layer was placed using 0 Vicryl in a running fashion as well. The bilateral tubes and ovaries appeared normal. The abdominal gutters were cleared of all clots and debris. A final check of the uterine incision showed it to be hemostatic. The peritoneum was closed using 3-0 Vicryl in a running fashion. The muscles were brought back together in the midline with a loose stitch of 3-0 Vicryl. The fascia was closed with 0 Vicryl in a running fashion. The subcutaneous space was hemostatic, and irrigated. The subcutaneous space was closed with 3-0 Vicryl in several single interrupted stitches. The skin was then closed using 4-0 Monocryl in a running subcuticular fashion. The skin edges were reapproximated together and were hemostatic. A pressure dressing was applied. All sponge, lap and needle counts were correct at the end of the procedure per nursing. Before awakening the patient, a TAP block was placed by anesthesia. Vitals - Labs Vital Signs - I&O Vital Signs Date Time Temp Pulse Resp B/P (MAP) Pulse Ox O2 Delivery O2 Flow Rate FiO2 06/30/20 11:30 93 18 136/71 (92) Room Air 06/30/20 06:35 36.8 85 18 98 Room Air Labs Laboratory Tests 06/30/20 06:31: Urine Color YELLOW, Urine Clarity CLOUDY, Urine pH 6.0, Urine Specific [place] 1.025H, Urine Protein 15H, Urine Glucose (UA) NEGATIVE, Urine Ketones NEGATIVE, Urine Nitrite NEGATIVE, Urine Bilirubin NEGATIVE, Urine Urobilinogen 1.0, Urine Leukocyte Esterase TRACEH, Urine RBC (Auto) NEGATIVE, Urine RBC NONE, Urine WBC RARE, Urine Squamous Epithelial Cells 10-25H, Urine Crystals NONE, Urine Bacteria FEWH, Urine Casts NONE, Urine Mucus LARGEH, Urine Culture Indicated NO, Urine Creatinine 212H, Urine Protein/Creatinine Ratio 0.07, Urine Opiates Screen POSITIVEH, Urine Oxycodone Screen NEGATIVE, Urine Methadone Screen NEGATIVE, Urine Propoxyphene Screen NEGATIVE, Urine Barbiturates Screen NEGATIVE, Ur Tricyclic Antidepressants Screen NEGATIVE, Urine Phencyclidine Screen NEGATIVE, Urine Amphetamines Screen POSITIVEH, Urine Methamphetamines Screen POSITIVEH, Urine Benzodiazepines Screen POSITIVEH, Urine Cocaine Screen NEGATIVE, Urine Cannabinoids Screen NEGATIVE 06/30/20 06:45: White Blood Count 7.7, Red Blood Count 3.46L, Hemoglobin 9.4L, Hematocrit 29L, Mean Corpuscular Volume 83, Mean Corpuscular Hemoglobin 27, Mean Corpuscular Hemoglobin Concent 33, Red Cell Distribution Width 13.6, Platelet Count 174, Mean Platelet Volume 11.4, Immature Granulocyte % (Auto) 0, Neutrophils (%) (Auto) 60, Lymphocytes (%) (Auto) 29, Monocytes (%) (Auto) 9, Eosinophils (%) (Auto) 1, Basophils (%) (Auto) 0, Neutrophils # (Auto) 4.7, Lymphocytes # (Auto) 2.2, Monocytes # (Auto) 0.7, Eosinophils # (Auto) 0.1, Basophils # (Auto) 0.0, Immature Granulocyte # (Auto) 0.0, Sodium Level 136, Potassium Level 4.0, Chloride Level 107, Carbon Dioxide Level 20L, Anion Gap 9, Blood Urea Nitrogen 11, Creatinine 0.66, Estimat Glomerular Filtration Rate > 60, BUN/Creatinine Ratio 17, Glucose Level 85, Uric Acid 5.0, Calcium Level 7.6L, Corrected Calcium 8.4L, Total Bilirubin 0.3, Aspartate Amino Transf (AST/SGOT) 29, Alanine Aminotransferase (ALT/SGPT) 18, Alkaline Phosphatase 165H, Total Protein 6.0L, Albumin 3.0L 06/30/20 07:30: VILMA ADRIAN DO Jun 30, 2020 13:21
[2020-06-30] MEDS ORDERED: MIDAZOLAM 2 MG/2 ML (VERSED) VIAL ONE (13:28)
[2020-06-30] MEDS ORDERED: OXYTOCIN PRE-MIX DRIP 500 ML IV SCH (13:30)
[2020-06-30] MEDS ORDERED: TETANUS,DIPTH,PERTUSS P/F (BOOSTRIX) 0.5 ML VIAL IM SCH (13:30)
[2020-06-30] MEDS ORDERED: MEASLES,MUMPS,RUBELLA 1 EA INJ SC SCH (13:30)
[2020-06-30] MEDS ORDERED: ONDANSETRON 4 MG/2 ML (SDV) Z0FRAN IVP PRN ×2 (13:30→13:45)
[2020-06-30] MEDS ORDERED: morphine INJ 10 MG/ML 1ML (SYR OR VIAL) IVP ONE (13:45)
[2020-06-30] MEDS ORDERED: HYDROmorphone 2 MG/ML VIAL (DILAUDID) IV ONE (13:45)
[2020-06-30] MEDS ORDERED: PROMETHAZINE INJ 25 MG/ML (PHENERGAN) AMP IVP ONE (13:45)
[2020-06-30] MEDS ORDERED: KETOROLAC 30 MG/ML VIAL IVP ONE (13:45)
[2020-06-30] MEDS ORDERED: fentaNYL INJECTION 100 MCG/2 ML AMP IVP ONE (13:45)
[2020-06-30] MEDS: KETOROLAC 30 MG/ML VIAL IV SCH ×2 (13:53→20:25)
[2020-06-30] MEDS ORDERED: CATHETER FLUSH 10 ML SYR IV SCH (14:00)
[2020-06-30] MEDS: ACETAMINOPHEN 500 MG TAB (TYLENOL) PO SCH (17:27)
[2020-06-30] MEDS: FERROUS SULF 325 MG (IRON) TAB PO SCH (18:14)
[2020-06-30] MEDS: DOCUSATE SODIUM 100 MG (COLACE) CAP PO SCH (20:25)
[2020-06-30 22:32] LABS: HEPATITIS C ANTIBODY C Reactive (Non-Reactive)
[2020-07-01 00:03] VITALS: BP 137/67
[2020-07-01] MEDS: ACETAMINOPHEN 500 MG TAB (TYLENOL) PO SCH ×2 (00:44→09:10)
[2020-07-01] MEDS: KETOROLAC 30 MG/ML VIAL IV SCH (02:49)
[2020-07-01 02:59] VITALS: BP 145/79
[2020-07-01] MEDS ORDERED: MILK OF MAGNESIA 400 MG/5 ML 30 ML UDC PO PRN (05:00)
[2020-07-01 05:54] LABS: BASOPHILS % (AUTO) 0 % (0-10); EOSINOPHILS % (AUTO) 0 % (0-10); HEMATOCRIT 26 % (35-52); HEMOGLOBIN 8.4 g/dL (11.5-16.0); LYMPHOCYTES # (AUTO) 2.5 10^3/uL (1.0-4.0); LYMPHOCYTES % (AUTO) 21 % (12-44); MEAN CORPUSCULAR HEMOGLOBIN 27 pg (25-34); MEAN CORPUSCULAR HGB CONC 33 g/dL (32-36); MEAN CORPUSCULAR VOLUME 82 fL (80-99); MEAN PLATELET VOLUME 11.8 fL (9.0-12.2); MONOCYTES # (AUTO) 0.9 10^3/uL (0.0-1.0); MONOCYTES % (AUTO) 7 % (0-12); NEUTROPHILS # (AUTO) 8.4 10^3/uL (1.8-7.8); NEUTROPHILS % (AUTO) 71 % (42-75); PLATELET COUNT 145 10^3/uL (130-400); WHITE BLOOD COUNT 11.7 10^3/uL (4.3-11.0)
--- NOTE | 2020-07-01 07:56 | Anesthesia-General Post-Op ---
General Patient Condition Mental Status/LOC: Same as Preop Cardiovascular: Satisfactory Nausea/Vomiting: Absent Respiratory: Satisfactory Pain: Controlled Complications: Absent Post Op Complications Complications None Follow Up Care/Instructions Patient Instructions None needed. Anesthesia/Patient Condition Patient Condition Patient is doing well, no complaints, stable vital signs, no apparent adverse anesthesia problems. No complications reported per nursing. JESUS MCCLELLAND CRNA Jul 01, 2020 07:56
--- NOTE | 2020-07-01 08:54 | Postpartum Progress Note ---
Post Op Post-operative Day #1 s/p rltcs Subjective: Patient is without complaints. Ambulating, voiding after banerjee removed. Tolerating a regular diet without nausea or vomiting. Normal lochia. Pain is well controlled with oral pain medications. Passing flatus. [[] baby transferred to [place] d/t susoected withdrawal Objective: 07/01/20 07/01/20 00:03 02:59 Temp 36.4 36.4 Pulse 95 76 Resp 18 18 B/P (MAP) 137/67 (90) 145/79 (101) Pulse Ox 95 96 O2 Delivery Room Air Room Air 07/01/20 00:00 Intake Total 1510 ml Output Total 755 ml Balance 755 ml Laboratory Tests Test 07/01/20 05:30 Range/Units White Blood Count 11.7 H 4.3-11.0 10^3/uL Red Blood Count 3.11 L 3.80-5.11 10^6/uL Hemoglobin 8.4 L 11.5-16.0 g/dL Hematocrit 26 L 35-52 % Mean Corpuscular Volume 82 80-99 fL Mean Corpuscular Hemoglobin 27 25-34 pg Mean Corpuscular Hemoglobin Concent 33 32-36 g/dL Red Cell Distribution Width 13.5 10.0-14.5 % Platelet Count 145 130-400 10^3/uL Mean Platelet Volume 11.8 9.0-12.2 fL Immature Granulocyte % (Auto) 0 % Neutrophils (%) (Auto) 71 42-75 % Lymphocytes (%) (Auto) 21 12-44 % Monocytes (%) (Auto) 7 0-12 % Eosinophils (%) (Auto) 0 0-10 % Basophils (%) (Auto) 0 0-10 % Neutrophils # (Auto) 8.4 H 1.8-7.8 10^3/uL Lymphocytes # (Auto) 2.5 1.0-4.0 10^3/uL Monocytes # (Auto) 0.9 0.0-1.0 10^3/uL Eosinophils # (Auto) 0.0 0.0-0.3 10^3/uL Basophils # (Auto) 0.0 0.0-0.1 10^3/uL Immature Granulocyte # (Auto) 0.1 0.0-0.1 10^3/uL Physical Exam: General - Alert and oriented, no apparent distress Abdomen - Soft, appropriately tender to palpation, non-distended, fundus firm at umbilicus Incision - clean, dry and intact; no erythema or induration, no drainage Extremities - no edema, negative Abby's bilaterally [] Assessment: [] post-operative day # [], status post []. Recovering well, hemodynamically stable Acute blood loss anemia [] Plan: Routine post-operative care. Encourage breast feeding. Encourage ambulation. VTE prophylaxis: SCDs. Ferrous sulfate supplementation. Plan for discharge [] Vitals - Labs Vital Signs - I&O Vital Signs Date Time Temp Pulse Resp B/P (MAP) Pulse Ox O2 Delivery O2 Flow Rate FiO2 07/01/20 02:59 36.4 76 18 145/79 (101) 96 Room Air 07/01/20 00:03 36.4 95 18 137/67 (90) 95 Room Air 06/30/20 20:30 36.6 87 18 149/81 (103) 100 Room Air 06/30/20 18:20 145/85 (105) 06/30/20 18:14 36.2 73 18 155/92 (113) 96 Room Air 06/30/20 16:04 36.5 60 18 146/93 (110) 95 Room Air 06/30/20 14:45 36.4 60 18 130/89 (103) 98 Room Air 06/30/20 14:20 36.3 18 124/82 (96) 95 Room Air 06/30/20 14:20 Room Air 06/30/20 14:10 Room Air 06/30/20 14:10 18 128/86 (100) 97 Room Air 06/30/20 14:00 18 139/87 (104) 98 Room Air 06/30/20 13:55 Simple Mask 10 06/30/20 13:50 18 134/89 (104) 100 Simple Mask 10 06/30/20 13:40 Simple Mask 10 06/30/20 13:40 18 140/88 (105) 98 Simple Mask 10 06/30/20 13:28 36.1 18 128/72 (90) 100 Simple Mask 6 06/30/20 13:28 Simple Mask 10 06/30/20 11:30 93 18 136/71 (92) Room Air I & O 07/01/20 07:00 Intake Total 1870 ml Output Total 1055 ml Balance 815 ml Labs Laboratory Tests 07/01/20 05:30: White Blood Count 11.7H, Red Blood Count 3.11L, Hemoglobin 8.4L, Hematocrit 26L, Mean Corpuscular Volume 82, Mean Corpuscular Hemoglobin 27, Mean Corpuscular Hemoglobin Concent 33, Red Cell Distribution Width 13.5, Platelet Count 145, Mean Platelet Volume 11.8, Immature Granulocyte % (Auto) 0, Neutrophils (%) (Auto) 71, Lymphocytes (%) (Auto) 21, Monocytes (%) (Auto) 7, Eosinophils (%) (Auto) 0, Basophils (%) (Auto) 0, Neutrophils # (Auto) 8.4H, Lymphocytes # (Auto) 2.5, Monocytes # (Auto) 0.9, Eosinophils # (Auto) 0.0, Basophils # (Auto) 0.0, Immature Granulocyte # (Auto) 0.1 Microbiology 06/30/20 Gram Stain - Final, Resulted 06/30/20 Anaerobic Culture, Resulted Pending 06/30/20 Wound Culture, Resulted Pending VILMA ADRIAN DO Jul 01, 2020 08:54
[2020-07-01] MEDS ORDERED: IBUPROFEN 800 MG (MOTRIN) TAB PO ONE (09:00)
[2020-07-01 09:07] VITALS: BP 112/65
[2020-07-01] MEDS: DOCUSATE SODIUM 100 MG (COLACE) CAP PO SCH (09:10)
[2020-07-01] MEDS: FERROUS SULF 325 MG (IRON) TAB PO SCH (09:10)
[2020-07-01] MEDS ORDERED: IBUPROFEN 800 MG (MOTRIN) TAB PO SCH (12:00)
== END 2020-07-01 12:40 | disposition home or self-care (01) | DRG 787 ==
LOC: LDRP 06:10
PROVIDERS: ADMIT Obstetrics & Gynecology; ATTEND Obstetrics & Gynecology
PROC: 10D00Z1 Extraction of Products of Conception, Low, Open Approach (ICD-10-PCS; principal; 2020-06-30 11:58)
DX: O34.211 Maternal care for low transverse scar from previous cesarean delivery (principal); O98.42 Viral hepatitis complicating childbirth; D62 Acute posthemorrhagic anemia; O99.324 Drug use complicating childbirth; Z3A.39 39 weeks gestation of pregnancy; Z37.0 Single live birth; O13.4 Gestational [pregnancy-induced] hypertension without significant proteinuria, complicating childbirth; F11.10 Opioid abuse, uncomplicated; B19.20 Unspecified viral hepatitis C without hepatic coma; O90.81 Anemia of the puerperium; O99.334 Smoking (tobacco) complicating childbirth; F17.210 Nicotine dependence, cigarettes, uncomplicated; O99.344 Other mental disorders complicating childbirth; F41.8 Other specified anxiety disorders; Z20.822 Contact with and (suspected) exposure to COVID-19
CPT/HCPCS: 36415; 80053; 80306; 81000; 82570; 84156; 84550; 85025; 85027; 86803; 86850; 86900; 86901; 87070; 87075; 87077; 87205; 87522; 87635; 90715

== ENCOUNTER 2021-07-19 05:30 | Outpatient (CLI) | payer MEDICAID ==
[~2021-07-19] VITALS: Ht 162.6 cm; Wt 105.9 kg
[~2021-07-19 05:30] MED LIST changes: -CITRIC ACID/SOB CIT (BICITRA) 30 ML UDC ONE; -FAMOTIDINE 20MG/2ML IV (PEPCID) ONE; -METOCLOPRAMIDE INJ 10 MG/2 ML (REGLAN) ONE; -ceFAZolin 2 GM IV Premixed 0 ML ONE
[2021-07-19] MEDS ORDERED: ACET-2267 PO (11:44)
== END 2021-07-19 12:18 ==
LOC: PREOP 05:30
PROVIDERS: ATTEND Obstetrics & Gynecology
DX: Z01.818 Encounter for other preprocedural examination (principal)

== ENCOUNTER 2021-07-23 08:45 | Outpatient (CLI) | payer MEDICAID ==
[~2021-07-23] VITALS: Ht 167 cm; Wt 106.8 kg
[~2021-07-23 08:45] MED LIST changes: +ACET-2267 PO
[2021-07-23 09:28] LABS: BILIRUBIN,URINE NEGATIVE (NEGATIVE); CLARITY,URINE CLEAR; COLOR,URINE YELLOW; GLUCOSE, URINE (UA) NEGATIVE (NEGATIVE); KETONES,URINE NEGATIVE (NEGATIVE); LEUKOCYTE ESTERASE ,URINE NEGATIVE (NEGATIVE); NITRITE,URINE NEGATIVE (NEGATIVE); PH,URINE 6.5 (5-9); PROTEIN,URINE NEGATIVE (NEGATIVE)
[2021-07-23 09:42] LABS: BACTERIA,URINE FEW /HPF; SQUAMOUS EPITHELIAL CELL,UR 0-2 /HPF; WBC,URINE RARE /HPF
[2021-07-23 10:09] LABS: AMPHETAMINE SCREEN, URINE NEGATIVE (NEGATIVE); BARBITURATE SCREEN URINE NEGATIVE (NEGATIVE); BENZODIAZEPINES SCREEN URINE NEGATIVE (NEGATIVE); CANNABINOID SCREEN, URINE NEGATIVE (NEGATIVE); COCAINE SCREEN URINE NEGATIVE (NEGATIVE); METHADONE STAT NEGATIVE (NEGATIVE); METHAMPHETAMINE SCREEN URINE S NEGATIVE (NEGATIVE); OPIATE SCREEN URINE NEGATIVE (NEGATIVE); OXYCODONE STAT NEGATIVE (NEGATIVE); PROPOXYPHENE STAT NEGATIVE (NEGATIVE); TRICYCLIC ANTIDEPRESSANTS SCRE NEGATIVE (NEGATIVE)
[2021-07-23 10:21] VITALS: BP 124/69
[2021-07-26] MEDS ORDERED: DOCU100C37 PO (07:25)
[2021-07-26] MEDS ORDERED: IBUP-844 PO (07:25)
[2021-07-26] MEDS ORDERED: ACHD5005 PO (07:25)
--- NOTE | 2021-07-26 08:34 | Physician Query-Final Dx ---
Clinic Account Progress/Dx Physician Query: Please give diagnosis Please include # weeks gestation Date of Service Jul 23, 2021 at 08:45 LUIZMayJul 26, 2021 08:34
== END 2021-07-23 10:35 | disposition home or self-care (01) ==
LOC: WSo 08:45 → LDRP 08:45 → WSo 10:35
PROVIDERS: ATTEND Family Medicine
DX: O62.9 Abnormality of forces of labor, unspecified (principal); Z3A.39 39 weeks gestation of pregnancy
CPT/HCPCS: 80306; 81000; 84112; 99213

== ENCOUNTER 2021-07-26 05:43 | Inpatient (IN) | payer MEDICAID ==
[~2021-07-26] VITALS: Ht 162.6 cm; Wt 106.8 kg
[2021-07-26] VITALS (8 sets, daily range): BP systolic 94–129; BP diastolic 59–73
[2021-07-26] MEDS ORDERED: METOCLOPRAMIDE INJ 10 MG/2 ML (REGLAN) IV ONE (06:00)
[2021-07-26] MEDS ORDERED: LACTATED RINGERS 1,000 ML IV SCH (06:00)
[2021-07-26] MEDS ORDERED: ceFAZolin 2 GM IV Premixed 50 ML IV ONE (06:00)
[2021-07-26] MEDS ORDERED: CITRIC ACID/SOB CIT (BICITRA) 30 ML UDC PO ONE (06:00)
[2021-07-26] MEDS ORDERED: FAMOTIDINE 20MG/2ML IV (PEPCID) IV ONE (06:00)
[2021-07-26] MEDS: LACTATED RINGERS 1,000 ML IV SCH ×2 (06:16→07:29)
[2021-07-26 06:37] LABS: BILIRUBIN,URINE NEGATIVE (NEGATIVE); CLARITY,URINE SL CLOUDY; COLOR,URINE YELLOW; GLUCOSE, URINE (UA) NEGATIVE (NEGATIVE); KETONES,URINE NEGATIVE (NEGATIVE); LEUKOCYTE ESTERASE ,URINE NEGATIVE (NEGATIVE); NITRITE,URINE NEGATIVE (NEGATIVE); PROTEIN,URINE NEGATIVE (NEGATIVE)
[2021-07-26 06:38] LABS: BASOPHILS % (AUTO) 0 % (0-10); EOSINOPHILS # (AUTO) 0.1 10^3/uL (0.0-0.3); EOSINOPHILS % (AUTO) 1 % (0-10); HEMATOCRIT 30 % (35-52); HEMOGLOBIN 10.1 g/dL (11.5-16.0); LYMPHOCYTES % (AUTO) 25 % (12-44); MEAN CORPUSCULAR HEMOGLOBIN 29 pg (25-34); MEAN CORPUSCULAR HGB CONC 34 g/dL (32-36); MEAN CORPUSCULAR VOLUME 86 fL (80-99); MEAN PLATELET VOLUME 10.9 fL (9.0-12.2); MONOCYTES # (AUTO) 0.6 10^3/uL (0.0-1.0); MONOCYTES % (AUTO) 8 % (0-12); NEUTROPHILS # (AUTO) 5.3 10^3/uL (1.8-7.8); NEUTROPHILS % (AUTO) 65 % (42-75); PLATELET COUNT 162 10^3/uL (130-400); WHITE BLOOD COUNT 8.1 10^3/uL (4.3-11.0)
[2021-07-26 06:50] LABS: BACTERIA,URINE MODERATE /HPF; SQUAMOUS EPITHELIAL CELL,UR 25-50 /HPF
[2021-07-26] MEDS ORDERED: fentaNYL INJ 100 MCG/2 ML AMP ONE (07:10)
[2021-07-26] MEDS ORDERED: BUPIVACAINE 0.5% 30 ML (SENSORCAINE) VIAL ONE (07:10)
--- NOTE | 2021-07-26 07:22 | History & Physical-OB ---
OB - Chief Complaint & HPI Date/Time Date of Admission: Date of Admission: Jul 26, 2021 at 05:43 Date seen by a Provider: Jul 26, 2021 Time Seen by a Provider: 07:05 Chief Complaint/History OB-Reason for Admission/Chief: Section Hx : 7 Hx Para: 6 Expected Date of Delivery: Aug 01, 2021 Gestational Age in Weeks: 39 Gestational Age in Days: 1 Indication for : desires repeat Other reason for admission: Referral from Dr. Sorensen for RLTCS Admission Nurse Assessment Rev: Yes Allergies and Home Medications Allergies Coded Allergies: iodine (Unverified Allergy, Unknown, THROAT SWELLING, 07/19/21) shellfish derived (Verified Allergy, Unknown, SWOLLEN THROAT, 07/19/21) Patient Home Medication List Home Medication List Reviewed: Yes Acetaminophen (Tylenol Extra Strength) 500 Mg Tablet, 500 MG PO UD, (Reported) Entered as Reported by: BASIL NEELY on 07/19/21 1144 OB - History Hx of Present Care: Yes Ultrasounds: Normal mid trimester US Obstetrical Complications: None Medical Complications: None Obstetrical History Hx Termination: No Hx Multiple Gestation: No Hx Stillbirth: No Hx Complication: No Hx Induced Hypertens: No Hx Maternal Gestational Diabet: No Delivery History Hx Dystocia: No Hx Large For Gestational Age I: No Hx Small for Gestational Age I: No Hx Section: No Hx Vaginal Delivery Post C-Sec: No Hx Blood Disorders: No Adverse Rxn to Tranfusion: No Patient Past Medical History Hx of Methamphetamine abuse THC abuse Tobacco abuse Axiety Depression Bacterial Vaginosis Trich Asthma - as child Hx of ETOH abuse Chronic constipation Hx of suicide attempt - Xanax overdose 08/13/15 Social History/Family History 2nd Hand Smoke Exposure: Yes Immunizations Influenza Vaccine Up-to-Date: No; Not Current Hepatitis A: No Hepatitis B: No Tetanus Booster (TDap): Less than 5yrs OB - Admission Exam Physical Exam Vitals: Vital Signs 07/26/21 06:19 Temp 36.8 Pulse 82 Resp 18 Pulse Ox 99 O2 Delivery Room Air HEENT: NCAT Heart: Rhythm Normal Lungs: Clear Abdomen: Gravid Extremities: Normal Reflexes: Normal Heart Rate: 130's Accelerations: Accelerations Present Decelerations: No Decelerations Short Term Variability: Present Prison Variability: Average (6-25) Contractions on Admission: >10 Minutes Apart Intensity: Mild Labs Laboratory Tests Test 07/26/21 06:15 07/26/21 06:19 Range/Units Urine Color YELLOW Urine Clarity SL CLOUDY Urine pH 6.0 5-9 Urine Specific [place] 1.025 H 1.016-1.022 Urine Protein NEGATIVE NEGATIVE Urine Glucose (UA) NEGATIVE NEGATIVE Urine Ketones NEGATIVE NEGATIVE Urine Nitrite NEGATIVE NEGATIVE Urine Bilirubin NEGATIVE NEGATIVE Urine Urobilinogen 0.2 < = 1.0 MG/DL Urine Leukocyte Esterase NEGATIVE NEGATIVE Urine RBC (Auto) NEGATIVE NEGATIVE Urine RBC NONE /HPF Urine WBC NONE /HPF Urine Squamous Epithelial Cells 25-50 H /HPF Urine Crystals NONE /LPF Urine Bacteria MODERATE H /HPF Urine Casts NONE /LPF Urine Mucus NEGATIVE /LPF Urine Culture Indicated NO White Blood Count 8.1 4.3-11.0 10^3/uL Red Blood Count 3.47 L 3.80-5.11 10^6/uL Hemoglobin 10.1 L 11.5-16.0 g/dL Hematocrit 30 L 35-52 % Mean Corpuscular Volume 86 80-99 fL Mean Corpuscular Hemoglobin 29 25-34 pg Mean Corpuscular Hemoglobin Concent 34 32-36 g/dL Red Cell Distribution Width 14.3 10.0-14.5 % Platelet Count 162 130-400 10^3/uL Mean Platelet Volume 10.9 9.0-12.2 fL Immature Granulocyte % (Auto) 1 % Neutrophils (%) (Auto) 65 42-75 % Lymphocytes (%) (Auto) 25 12-44 % Monocytes (%) (Auto) 8 0-12 % Eosinophils (%) (Auto) 1 0-10 % Basophils (%) (Auto) 0 0-10 % Neutrophils # (Auto) 5.3 1.8-7.8 10^3/uL Lymphocytes # (Auto) 2.0 1.0-4.0 10^3/uL Monocytes # (Auto) 0.6 0.0-1.0 10^3/uL Eosinophils # (Auto) 0.1 0.0-0.3 10^3/uL Basophils # (Auto) 0.0 0.0-0.1 10^3/uL Immature Granulocyte # (Auto) 0.1 0.0-0.1 10^3/uL OB - Assessment/Plan/Diagnosis Assessment Assessment: section Admission Dx 26 yo @ 39 weeks Previous x 1 Hx of ilicit drug use Admission Status: Inpatient Order (span 2 midnights) Reason for Inpatient Admission: RLTCS at 39 weeks Plan Plan: Section YEN MORILLO DO Jul 26, 2021 07:22
[2021-07-26] MEDS ORDERED: DOCU100C37 PO (07:25)
[2021-07-26] MEDS ORDERED: ACHD5005 PO (07:25)
[2021-07-26] MEDS ORDERED: IBUP-844 PO (07:25)
--- NOTE | 2021-07-26 07:25 | Discharge Inst-Women's Service ---
Discharge Inst-Women's Serv Depart Medication/Instructions New, Converted or Re-Newed RX: Transmitted to Pharmacy Final Diagnosis POD 2 RLTCS Problems Reviewed?: Yes Consults/Follow Up Additional Follow Up: Yes Orders/Referrals Dr. Monet/Nathalie in 7-[address] Sorensen in 6 weeks Activity Activity: Activity as Tolerated Driving Instructions: No Driving for 1 Week NO SMOKING: NO SMOKING Nothing Inside Vagina: No Douching, No [place], No Tampons Diet Discharge Diet: No Restrictions Symptoms to Report to : Bleeding Excessive, Pain Increased, Fever Over 101 Degrees F, Vaginal Bleeding Increase, Questions/Concerns For Any Problems or Questions: Contact Your Physician Skin/Wound Care Infection Signs and Symptoms: Increased Redness, Foul Odor of Wound, Increased Drainage, Skin Itchy or Has a Rash, Increased Swelling, Temperature Above 101 F Operative Area Clean and Dry: Keep Incision Clean/Dry Stitches/Kvng/Dermabond: Dermabond, Care of Stitches Bathing Instructions: YEN Orr DO Jul 26, 2021 07:25
[2021-07-26] MEDS ORDERED: TETANUS,DIPTH,PERTUSS P/F (BOOSTRIX) 0.5 ML VIAL IM SCH (07:30)
[2021-07-26] MEDS ORDERED: NALOXONE 0.4 MG/ML 1 ML (NARCAN) VIAL IV PRN (07:30)
[2021-07-26] MEDS ORDERED: MEASLES,MUMPS,RUBELLA 1 EA INJ SC SCH (07:30)
[2021-07-26] MEDS ORDERED: ONDANSETRON 4 MG/2 ML (SDV) Z0FRAN IVP PRN (07:30)
[2021-07-26] MEDS ORDERED: OXYTOCIN PRE-MIX DRIP 500 ML IV SCH (07:30)
[2021-07-26] MEDS ORDERED: OXYTOCIN PRE-MIX DRIP 1,000 ML IV ONE (09:09)
[2021-07-26] MEDS ORDERED: KETOROLAC 30 MG/ML VIAL ONE (09:49)
[2021-07-26] MEDS: DOCUSATE SODIUM 100 MG (COLACE) CAP PO SCH ×2 (09:56→21:02)
[2021-07-26] MEDS: KETOROLAC 30 MG/ML VIAL IV SCH ×2 (09:57→16:06)
[2021-07-26] MEDS: METOCLOPRAMIDE 10 MG (REGLAN) TAB PO SCH (12:34)
--- NOTE | 2021-07-26 13:33 | OPERATIVE REPORT ---
DATE OF SERVICE: PREOPERATIVE DIAGNOSES: 1. A 26-year-old G7, P6 at 39 weeks gestation. 2. Previous section. POSTOPERATIVE DIAGNOSES: 1. A 26-year-old G7, P6 at 39 weeks gestation. 2. Previous section. PROCEDURE: Repeat low transverse section. SURGEON: Miguel Monet DO SCALLOPER: Dr. Femi Sorensen, who was necessary for manipulation and retraction throughout the procedure. ANESTHESIA: Spinal. ESTIMATED BLOOD LOSS: 500 mL. URINE OUTPUT: 50 mL clear at the end of the procedure. FLUIDS: 2200 mL of lactated Ringer's solution. FINDINGS: A live female infant weighing 8 pounds 8 ounces, Apgars of 9 and 9. Grossly normal appearing uterus, bilateral fallopian tubes and ovaries. SPECIMEN SENT: Placenta. INDICATIONS FOR PROCEDURE: This 26-year-old female is a patient who had sought care with Dr. Sorensen, he had referred her to my office for repeat . We have scheduled this for 39 weeks after all the risks, benefits and alternatives were discussed with the patient in detail, she was agreeable to proceed. Consent was obtained in the preoperative area, the patient was taken to the operating room. OPERATIVE REPORT IN DETAIL: Once in the operating room, spinal analgesia was found to be adequate, placed in supine position with leftward tilt, prepped and draped in normal sterile fashion. Timeout was performed and anesthesia was tested. I then make a Pfannenstiel skin incision through the previously existing scar using knife and carried down to the underlying fascia using Bovie cautery. Fascial incision extended laterally using Bovie cautery. Superior aspect of fascial incision was grasped with Phylicia clamps, tented up and dissected off the underlying rectus muscles. The inferior aspect of fascial incision was then grasped with Phylicia clamps, tented up and dissected off the underlying rectus muscles. Rectus muscles were dissected down the midline using Fitch scissors, which exposed the peritoneum, which I entered bluntly and extended using blunt traction. Yury ring retractor was placed in the peritoneal incision, which offers excellent lateral sidewall retraction. I identified the lower uterine segment, which was found to be thinned out. I make a low transverse incision to the vesicouterine peritoneum and bluntly dissected off the lower uterine segment, creating a bladder flap. I then proceeded with my myotomy until membranes were visualized, at which point I extended the uterine incision laterally and superiorly using bandage scissors. Amniotomy was then performed using Allis clamp. Clear fluid was noted. The infant was found in vertex presentation. With gentle fundal pressure, the infant's head was elevated up to the incision where the nares and oropharynx were bulb suctioned. Anterior and posterior shoulders were delivered. was then brought to the operative field where cord doubly clamped and cut and infant handed off to Dr. Sorensen, who was present for delivery and attendant to the . Cord blood was collected, 3-vessel cord with intact placenta was delivered spontaneously thereafter. IV Pitocin was initiated to facilitate uterine contractions. Uterine fundus confirmed by manual massage. Uterus was then exteriorized and cleared of all endometrial clots and debris. I then proceeded with closing the uterine incision 0 vicryl suture in a running locked fashion. A second layer of running imbricating 0 Monocryl was placed. Excellent hemostasis was noted after doing this. I then placed the uterus back in the pelvis and copiously irrigated the pelvis using normal saline. There was no active bleeding noted from any of my dissection planes. I placed Interceed antiadhesive over my low traverse incision. I removed the Yury ring retractor and proceeded with closing the peritoneum using 3-0 Vicryl suture in running fashion. The rectus muscle reapproximated using 3-0 Vicryl suture in interrupted fashion. The fascia was reapproximated using 0 Vicryl suture in running fashion. Subcutaneous tissue was reapproximated using 3-0 plain and the skin reapproximated using 4-0 Monocryl running subcuticular. Dermabond was applied to incision and sterile dressing with adhesive white tape. The patient tolerated the procedure well and was taken to recovery area in stable condition. Lap and sponge counts were correct at the end of the procedure. Instrument counts correct as well. Two grams of Ancef given preoperatively for infection prophylaxis. Job ID: [id number] DocumentID: [id number] Dictated Date: 07/26/2021 08:57:10 Preforming Machine Operator Date: 07/26/2021 13:32:44 Dictated By: DO RICK GONZALEZ
[2021-07-26] MEDS ORDERED: CATHETER FLUSH 10 ML SYR IV SCH (14:00)
[2021-07-26] MEDS: HYDROcodone/APAP 5 MG/325 MG (LORTAB) TAB PO PRN ×2 (14:16→21:02)
[2021-07-27 00:23] VITALS: BP 120/58
[2021-07-27] MEDS: KETOROLAC 30 MG/ML VIAL IV SCH ×2 (00:23→06:15)
[2021-07-27] MEDS: METOCLOPRAMIDE 10 MG (REGLAN) TAB PO SCH ×4 (00:23→17:59)
[2021-07-27] MEDS: HYDROcodone/APAP 5 MG/325 MG (LORTAB) TAB PO PRN ×4 (03:22→22:07)
[2021-07-27 03:23] VITALS: BP 109/59
[2021-07-27 05:33] LABS: BASOPHILS % (AUTO) 0 % (0-10); EOSINOPHILS # (AUTO) 0.1 10^3/uL (0.0-0.3); EOSINOPHILS % (AUTO) 1 % (0-10); HEMATOCRIT 28 % (35-52); HEMOGLOBIN 9.4 g/dL (11.5-16.0); LYMPHOCYTES % (AUTO) 21 % (12-44); MEAN CORPUSCULAR HEMOGLOBIN 29 pg (25-34); MEAN CORPUSCULAR HGB CONC 34 g/dL (32-36); MEAN CORPUSCULAR VOLUME 86 fL (80-99); MONOCYTES # (AUTO) 0.7 10^3/uL (0.0-1.0); MONOCYTES % (AUTO) 7 % (0-12); NEUTROPHILS % (AUTO) 71 % (42-75); PLATELET COUNT 151 10^3/uL (130-400); WHITE BLOOD COUNT 9.8 10^3/uL (4.3-11.0)
[2021-07-27 06:15] VITALS: BP 124/62
--- NOTE | 2021-07-27 07:02 | Postpartum Progress Note ---
Note Note Day # 1 Subjective: Patient is without complaints. Ambulating, voiding. Tolerating a regular diet without nausea or vomiting. Normal lochia. Pain is well controlled with oral pain medications. Objective: Physical Exam: General - Alert and oriented, no apparent distress Abdomen - Soft, appropriately tender to palpation, non-distended, fundus firm at umbilicus Extremities - no edema, negative Abby's bilaterally Incision- c/d/i Assessment: POD 1 RLTCS Acute blood loss anemia Plan: Routine care. Encourage breast feeding. Encourage ambulation. Ferrous sulfate supplementation. Plan for discharge tomorrow Vitals - Labs Vital Signs - I&O Vital Signs Date Time Temp Pulse Resp B/P (MAP) Pulse Ox O2 Delivery O2 Flow Rate FiO2 07/27/21 06:15 36.6 82 18 124/62 (82) 97 Room Air 07/27/21 03:23 37.0 97 18 109/59 (76) 97 Room Air 07/27/21 00:23 36.6 76 18 120/58 (78) 97 Room Air 07/26/21 21:02 37.0 80 18 129/63 (85) 97 Room Air 07/26/21 16:07 Room Air 07/26/21 16:05 36.5 85 18 122/64 (83) Room Air 07/26/21 12:36 36.6 85 18 118/68 (85) 97 Room Air 07/26/21 09:30 36.1 12 103/71 (82) 98 Room Air 07/26/21 09:30 Room Air 07/26/21 09:15 36.1 12 94/73 (80) 93 Room Air 07/26/21 09:15 Room Air 07/26/21 09:00 35.9 22 123/64 (83) 97 Room Air 07/26/21 09:00 Room Air 07/26/21 08:43 36.4 16 125/59 (81) 100 Room Air 07/26/21 08:42 Room Air I & O 07/27/21 07:00 Intake Total 4038 ml Output Total 475 ml Balance 3563 ml Labs Laboratory Tests 07/27/21 05:20: White Blood Count 9.8, Red Blood Count 3.24L, Hemoglobin 9.4L, Hematocrit 28L, Mean Corpuscular Volume 86, Mean Corpuscular Hemoglobin 29, Mean Corpuscular Hemoglobin Concent 34, Red Cell Distribution Width 14.3, Platelet Count 151, Mean Platelet Volume 11.0, Immature Granulocyte % (Auto) 1, Neutrophils (%) (Auto) 71, Lymphocytes (%) (Auto) 21, Monocytes (%) (Auto) 7, Eosinophils (%) (Auto) 1, Basophils (%) (Auto) 0, Neutrophils # (Auto) 7.0, Lymphocytes # (Auto) 2.0, Monocytes # (Auto) 0.7, Eosinophils # (Auto) 0.1, Basophils # (Auto) 0.0, Immature Granulocyte # (Auto) 0.1 Microbiology 07/26/21 MRSA Screen - Final, Complete MRSA not isolated YEN MORILLO 22, 2022 07:02
[2021-07-27 07:40] VITALS: BP 115/64
--- NOTE | 2021-07-27 08:28 | Anesthesia-Regional Post-Op ---
Regional Patient Condition Mental Status: Alert, Oriented x3 Circulation: Same as Pre-Op Headache: Absent Sensation: Full Recovery Motor Block: Absent Post Op Complications Complications None Follow Up Care/Instructions Patient Instructions None needed. Anesthesia/Patient Condition Patient is doing well, no complaints, stable vital signs, no apparent adverse anesthesia problems. No complications reported per nursing. D/C home per [facility] Criteria: Yes CHELSEA LARSEN CRNA Jul 27, 2021 08:28
[2021-07-27] MEDS: IBUPROFEN 600 MG (MOTRIN) TAB PO SCH ×2 (12:20→17:59)
[2021-07-27 13:30] VITALS: BP 124/79
[2021-07-27] MEDS: DOCUSATE SODIUM 100 MG (COLACE) CAP PO SCH (20:46)
[2021-07-27 21:31] VITALS: BP 125/70
[2021-07-28 00:13] VITALS: BP 127/80
[2021-07-28] MEDS: IBUPROFEN 600 MG (MOTRIN) TAB PO SCH ×3 (00:13→12:02)
[2021-07-28] MEDS: METOCLOPRAMIDE 10 MG (REGLAN) TAB PO SCH ×3 (00:13→12:02)
[2021-07-28] MEDS: HYDROcodone/APAP 5 MG/325 MG (LORTAB) TAB PO PRN ×2 (04:34→11:12)
[2021-07-28 06:24] VITALS: BP 126/58
[2021-07-28 09:15] VITALS: BP 142/83
[2021-07-28] MEDS: DOCUSATE SODIUM 100 MG (COLACE) CAP PO SCH (09:22)
--- NOTE | 2021-07-28 09:52 | Postpartum Progress Note ---
Note Note Day # 2 Subjective: Patient is without complaints. Ambulating, voiding. Tolerating a regular diet without nausea or vomiting. Normal lochia. Pain is well controlled with oral pain medications. Physical Exam: General - Alert and oriented, no apparent distress Abdomen - Soft, appropriately tender to palpation, non-distended, fundus firm at umbilicus; incision c/d/i Extremities - no edema, negative Abby's bilaterally Assessment: Post- day # 2, status post RLTCS. Recovering well, hemodynamically stable Acute blood loss anemia Plan: Routine care. Encourage breast feeding. Encourage ambulation. Ferrous sulfate supplementation. Plan for discharge today Vitals - Labs Vital Signs - I&O Vital Signs Date Time Temp Pulse Resp B/P (MAP) Pulse Ox O2 Delivery O2 Flow Rate FiO2 07/28/21 06:24 36.7 84 18 126/58 (80) 96 Room Air 07/28/21 00:13 36.4 87 18 127/80 (96) 97 07/27/21 21:31 36.8 89 18 125/70 (88) 100 Room Air 07/27/21 13:30 36.8 92 16 124/79 (94) Room Air Labs Microbiology 07/26/21 MRSA Screen - Final, Complete MRSA not isolated KHADIJAH HAWKINS APRN Jul 28, 2021 09:52
[2021-07-28 12:00] VITALS: BP 142/83
== END 2021-07-28 12:40 | disposition home or self-care (01) | DRG 787 ==
LOC: EEVIPCON 05:43 → LDRP 05:43
PROVIDERS: ADMIT Obstetrics & Gynecology; ATTEND Obstetrics & Gynecology
PROC: 10D00Z1 Extraction of Products of Conception, Low, Open Approach (ICD-10-PCS; principal; 2021-07-26 07:26)
DX: O34.211 Maternal care for low transverse scar from previous cesarean delivery (principal); D62 Acute posthemorrhagic anemia; O90.81 Anemia of the puerperium; O99.334 Smoking (tobacco) complicating childbirth; F17.290 Nicotine dependence, other tobacco product, uncomplicated; F15.21 Other stimulant dependence, in remission; F12.11 Cannabis abuse, in remission; Z37.0 Single live birth; Z3A.39 39 weeks gestation of pregnancy; Z88.8 Allergy status to other drugs, medicaments and biological substances; Z91.013 Allergy to seafood; Z23 Encounter for immunization
CPT/HCPCS: 36415; 80306; 81000; 84112; 85025; 86850; 86900; 86901; 87081; 90715; 94664; 99213

== ENCOUNTER 2021-11-01 17:11 | Emergency (ER) | payer MEDICAID ==
[~2021-11-01] VITALS: Ht 162.5 cm; Wt 98.8 kg
[~2021-11-01 17:11] MED LIST changes: +IBUP-844 PO
[2021-11-01 17:22] VITALS: BP 150/97
[2021-11-01] MEDS ORDERED: ACETAMINOPHEN 325 MG TABLET PO STA (18:43)
--- NOTE | 2021-11-01 18:45 | ED General ---
General Chief Complaint: General Problems/Pain Stated Complaint: PAIN IN LEGS AND HANDS Nursing Triage Note: PT AMB TO TRIAGE WITH COMPLAINT OF JOINT PAIN, NUMBNESS, AND DIZZINESS. STATES HAS BEEN GOING ON SINCE SHE HAD BABY IN JULY. IS CURRENTLY TAKING SUBOXONE AND EFFEXOR. History of Present Illness Date Seen by Provider: Nov 01, 2021 Time Seen by Provider: 17:30 Initial Comments 26-year-old female presents for generalized arthralgias on her upper and lower extremities. She states her hands, knees and ankles are extremely stiff and painful in the morning. As she uses them through the day they improved. 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 She reports having a thorough work-up before rehab. They she is unsure what testing they did. her mother does have a history of lupus. She is unsure if she has had a rheumatoid test in the past. Timing/Duration: Intermittent Severity: Moderate Associated Systoms: Denies Symptoms Allergies and Home Medications Allergies Coded Allergies: iodine (Unverified Allergy, Unknown, THROAT SWELLING, 07/19/21) shellfish derived (Verified Allergy, Unknown, SWOLLEN THROAT, 07/19/21) Patient Home Medication List Home Medication List Reviewed: Yes Docusate Sodium (Docusate Sodium) 100 Mg Capsule, 100 MG PO BID PRN for CONSTIPATION-1ST LINE Prescribed by: YEN MORILLO on 07/26/21 0725 Hydrocodone Bit/Acetaminophen (HYDROcodone/APAP 5 MG/325 MG TAB) 1 Tab Tab, 1-2 EA PO Q6HR PRN for PAIN-MODERATE (5-7) Prescribed by: YEN MORILLO on 07/26/21 0726 Ibuprofen (Ibu) 600 Mg Tablet, 600 MG PO Q6HR Prescribed by: YEN MORILLO on 07/26/21 0725 Review of Systems Review of Systems Constitutional: no symptoms reported, see HPI Musculoskeletal: see HPI, joint pain, joint swelling, muscle pain, muscle stiffness All Other Systems Reviewed Negative Unless Noted: Yes Past Qbtikfw-Fhknqs-Kqxjab Hx Patient Social History Tobacco Use?: No Use of E-Cig and/or Vaping dev: Yes E-Cig or Vaping type used: Nicotine Substance use?: No Additional substance use comme: PAST HX METH AND HEROIN Alcohol Use?: No Pt feels they are or have been: No Immunizations Up To Date Tetanus Booster (TDap): Less than 5yrs PED Vaccines UTD: Yes Seasonal Allergies Seasonal Allergies: No Past Medical History Surgeries: Yes (WISDOM TEETH, 2X ) Section Respiratory: Yes (childhood) Asthma Currently Using CPAP: No Currently Using BIPAP: No Cardiac: No Neurological: Yes (WITH PAST HEROIN USE) Neuropathy, Stroke Reproductive Disorders: No Female Reproductive Disorders: Denies Sexually Transmitted Disease: Yes (2008 tric) HIV/AIDS: No Genitourinary: No Gastrointestinal: Yes Gastroesophageal Reflux, Chronic Constipation, Hemorrhoids Musculoskeletal: No Endocrine: No HEENT: No Cancer: No Psychosocial: Yes (suicide attempts 2014, HX HEROIN 1 YEAR AGO) Anxiety, Suicide Attempts, Depression Integumentary: No Blood Disorders: No Adverse Reaction/Blood Tranf: No Family Medical History Reviewed Nursing Family Hx BLOOD CLOTS 19 MOTHER Drug abuse 19 MOTHER FHx: cancer 19 MOTHER Myocardial infarction (PATERNAL SIDE OF FAMILY) PACEMAKER IN PLACE 19 MOTHER Physical Exam Vital Signs Vital Signs - First Documented 11/01/21 17:22 Temp 37.1 Pulse 83 Resp 16 B/P (MAP) 150/97 (114) Pulse Ox 97 O2 Delivery Room Air Capillary Refill : Less Than 3 Seconds Height, Weight, BMI Height: 5'4.00" Weight: 216lbs. 0.2oz. [id number]; 37.00 BMI Method:Estimated General Appearance: No Apparent Distress, WD/WN Respiratory: Chest Non Tender, Lungs Clear, Normal Breath Sounds Cardiovascular: Regular Rate, Rhythm, No Edema, No Murmur, Normal Peripheral Pulses Extremity: Normal Capillary Refill, Normal Inspection, Normal Range of Motion; No Swelling Neurologic/Psychiatric: Alert, Oriented x3, No Motor/Sensory Deficits, Normal Mood/Affect Progress/Results/Core Measures Suspected Sepsis SIRS Temperature: Pulse: 83 Respiratory Rate: 16 Blood Pressure 150 /97 Mean: 114 Results/Orders My Orders Orders - TORI ROJAS Acetaminophen Tablet/Caplet (Tylenol T (11/01/21 18:43) Vital Signs/I&O 11/01/21 17:22 Temp 37.1 Pulse 83 Resp 16 B/P (MAP) 150/97 (114) Pulse Ox 97 O2 Delivery Room Air Capillary Refill : Less Than 3 Seconds Blood Pressure Mean: 114 Departure Impression Primary Impression: Arthralgia Qualified Codes: M25.50 - Pain in unspecified joint Disposition: HOME, SELF-CARE Condition: Stable Departure-Patient Inst. Decision time for Depature: 18:35 Referrals: [facility] (PCP/Family) Primary Care Physician Patient Instructions: Joint Pain Add. Discharge Instructions: Warm moist compresses or warm baths as needed for joint pain. Alternate between Tylenol 650 mg and ibuprofen 600 mg every 4 hours for pain and discomfort. Keep your scheduled appointment at [facility], as sure that they have done an inflammatory work-up. Return to the emergency department for new, urgent healthcare needs. All discharge instructions reviewed with patient and/or family. Voiced understanding. TOIR ROJAS Nov 01, 2021 18:45
== END 2021-11-01 18:52 | disposition home or self-care (01) ==
LOC: EDUNIT# 17:11 → ER 17:13
DX: M25.50 Pain in unspecified joint (principal); F41.9 Anxiety disorder, unspecified; F32.A Depression, unspecified; F17.210 Nicotine dependence, cigarettes, uncomplicated; Z79.891 Long term (current) use of opiate analgesic; Z79.899 Other long term (current) drug therapy
CPT/HCPCS: 99283

== ENCOUNTER 2021-11-28 11:04 | Emergency (ER) | payer MEDICAID ==
[~2021-11-28] VITALS: Ht 162.5 cm; Wt 98.8 kg
--- NOTE | 2021-11-28 11:21 | ED General ---
General Chief Complaint: General Problems/Pain Stated Complaint: BILAT HAND AND FEET NUMBNESS/PAIN Source of Information: Patient Exam Limitations: No Limitations History of Present Illness Date Seen by Provider: Nov 28, 2021 Time Seen by Provider: 11:16 Initial Comments To ER with reports of bilateral hip pain bilateral knee pain bilateral ankle pain and bilateral wrist pain. She also had some blisters on her hands that are resolving. No fevers. No weight loss. This is been ongoing for at least a couple of weeks and she was seen here in October for the same. She is on Suboxone prescribed by [facility]. She was started on Lexapro about a month ago but developed some diaphoresis and so she stopped the Lexapro and transitioned to Effexor, then the rash on her hands in the form of blisters started so she stopped the Effexor 1 week ago. Today she was worried about the lightheadedness and she also had some chest discomfort which prompted her visit to the emergency room. Timing/Duration: Getting Worse, Intermittent Severity: Moderate Associated Systoms: Chest Pain; No Cough; Diaphoresis; No Fever/Chills, No Headaches, No Loss of Appetite, No Malaise, No Nausea/Vomiting; Rash Allergies and Home Medications Allergies Coded Allergies: iodine (Unverified Allergy, Unknown, THROAT SWELLING, 07/19/21) shellfish derived (Verified Allergy, Unknown, SWOLLEN THROAT, 07/19/21) Patient Home Medication List Home Medication List Reviewed: Yes Docusate Sodium (Docusate Sodium) 100 Mg Capsule, 100 MG PO BID PRN for CONSTIPATION-1ST LINE Prescribed by: YEN MORILLO on 07/26/21 07 Hydrocodone Bit/Acetaminophen (HYDROcodone/APAP 5 MG/325 MG TAB) 1 Tab Tab, 1-2 EA PO Q6HR PRN for PAIN-MODERATE (5-7) Prescribed by: YEN MORILLO on 07/26/21 07 Ibuprofen (Ibu) 600 Mg Tablet, 600 MG PO Q6HR Prescribed by: YEN MORILLO on 07/26/21 07 Review of Systems Review of Systems Constitutional: see HPI EENTM: see HPI Respiratory: no symptoms reported Cardiovascular: no symptoms reported Genitourinary: no symptoms reported Musculoskeletal: see HPI Skin: no symptoms reported Psychiatric/Neurological: No Symptoms Reported Hematologic/Lymphatic: No Symptoms Reported Past Zdntcmz-Fxpsjr-Cjyvxo Hx Immunizations Up To Date Tetanus Booster (TDap): Less than 5yrs PED Vaccines UTD: Yes Seasonal Allergies Seasonal Allergies: No Past Medical History Surgeries: Yes (WISDOM TEETH, 2X ) Section Respiratory: Yes (childhood) Asthma Currently Using CPAP: No Currently Using BIPAP: No Cardiac: No Neurological: Yes (WITH PAST HEROIN USE) Neuropathy, Stroke Reproductive Disorders: No Female Reproductive Disorders: Denies Sexually Transmitted Disease: Yes (2008 tric) HIV/AIDS: No Genitourinary: No Gastrointestinal: Yes Gastroesophageal Reflux, Chronic Constipation, Hemorrhoids Musculoskeletal: No Endocrine: No HEENT: No Cancer: No Psychosocial: Yes (suicide attempts 2015, HX HEROIN 1 YEAR AGO) Anxiety, Suicide Attempts, Depression Integumentary: No Blood Disorders: No Adverse Reaction/Blood Tranf: No Family Medical History BLOOD CLOTS 19 MOTHER Drug abuse 19 MOTHER FHx: cancer 19 MOTHER Myocardial infarction (PATERNAL SIDE OF FAMILY) PACEMAKER IN PLACE 19 MOTHER Physical Exam Vital Signs Vital Signs - First Documented 11/28/21 11:12 Temp 36.4 Pulse 74 Resp 18 B/P (MAP) 152/93 (112) Pulse Ox 98 O2 Delivery Room Air Capillary Refill : Height, Weight, BMI Height: 5'4.00" Weight: 216lbs. 0.2oz. 97.210741fp; 37.00 BMI Method:Estimated General Appearance: No Apparent Distress, WD/WN, Other (Walks with a normal gait carrying her infant in a car seat with left hand Alert and oriented very pleasant no distress) Eyes: Bilateral Eye Normal Inspection, Bilateral Eye PERRL, Bilateral Eye EOMI Neck: Full Range of Motion, Normal Inspection Respiratory: No Accessory Muscle Use, No Respiratory Distress Cardiovascular: Regular Rate, Rhythm, Normal Peripheral Pulses Gastrointestinal: Normal Bowel Sounds, Non Tender, Soft Extremity: Normal Capillary Refill, Normal Inspection, Other (No current vesicles. No objective swelling of her hands. She states that all digits and her fingers are numb including the pinky fingers, not just the median nerve distribution. There is no objective abnormal appearance to the wrist or the hand or any of the affected joints. There is no knee effusion. Ankles appear normal.) Neurologic/Psychiatric: Alert, Oriented x3 Skin: Normal Color, Warm/Dry Progress/Results/Core Measures Suspected Sepsis SIRS Temperature: Pulse: Respiratory Rate: Laboratory Tests 11/28/21 11:30: White Blood Count 4.0L Blood Pressure / Mean: Laboratory Tests 11/28/21 11:30: Creatinine 0.77, Platelet Count 238 Results/Orders Lab Results Laboratory Tests Test 11/28/21 11:30 Range/Units White Blood Count 4.0 L 4.3-11.0 10^3/uL Red Blood Count 4.51 3.80-5.11 10^6/uL Hemoglobin 12.4 11.5-16.0 g/dL Hematocrit 36 35-52 % Mean Corpuscular Volume 81 80-99 fL Mean Corpuscular Hemoglobin 28 25-34 pg Mean Corpuscular Hemoglobin Concent 34 32-36 g/dL Red Cell Distribution Width 12.6 10.0-14.5 % Platelet Count 238 130-400 10^3/uL Mean Platelet Volume 10.7 9.0-12.2 fL Immature Granulocyte % (Auto) 0 % Neutrophils (%) (Auto) 39 L 42-75 % Lymphocytes (%) (Auto) 52 H 12-44 % Monocytes (%) (Auto) 6 0-12 % Eosinophils (%) (Auto) 3 0-10 % Basophils (%) (Auto) 1 0-10 % Neutrophils # (Auto) 1.6 L 1.8-7.8 10^3/uL Lymphocytes # (Auto) 2.1 1.0-4.0 10^3/uL Monocytes # (Auto) 0.2 0.0-1.0 10^3/uL Eosinophils # (Auto) 0.1 0.0-0.3 10^3/uL Basophils # (Auto) 0.0 0.0-0.1 10^3/uL Immature Granulocyte # (Auto) 0.0 0.0-0.1 10^3/uL Erythrocyte Sedimentation Rate 8 0-20 MM/HR Sodium Level 144 135-145 MMOL/L Potassium Level 3.7 3.6-5.0 MMOL/L Chloride Level 108 H 98-107 MMOL/L Carbon Dioxide Level 23 21-32 MMOL/L Anion Gap 13 5-14 MMOL/L Blood Urea Nitrogen 18 7-18 MG/DL Creatinine 0.77 0.60-1.30 MG/DL Estimat Glomerular Filtration Rate 108 BUN/Creatinine Ratio 23 Glucose Level 88 70-105 MG/DL Calcium Level 9.1 8.5-10.1 MG/DL Troponin I < 0.028 <0.028 NG/ML C-Reactive Protein High Sensitivity 0.17 0.00-0.50 MG/DL Serum Test, Qualitative NEGATIVE NEGATIVE My Orders Orders - BRYANNA RIVERO APRN Erythrocyte Sedimentation Rate (11/28/21 11:09) Hs C Reactive Protein (11/28/21 11:09) Cbc With Automated Diff (11/28/21 11:09) Hcg,Qualitative Serum (11/28/21 11:09) Basic Metabolic Panel (11/28/21 11:09) Ekg Tracing (11/28/21 11:15) Chest 1 View, Ap/Pa Only (11/28/21 11:15) Troponin I Davison (11/28/21 11:15) Vital Signs/I&O 11/28/21 11:12 Temp 36.4 Pulse 74 Resp 18 B/P (MAP) 152/93 (112) Pulse Ox 98 O2 Delivery Room Air Capillary Refill : Departure Communication (Admissions) EKG shows sinus rhythm at [address] segment changes. She has normal intervals. No ectopy. Chest x-ray is clear. Impression Primary Impression: Arthralgia Disposition: HOME, SELF-CARE Condition: Stable Departure-Patient Inst. Decision time for Depature: 12:22 Referrals: [facility] (PCP/Family) Primary Care Physician Patient Instructions: Joint Pain Add. Discharge Instructions: 1. The sweating called hyperhidrosis is a common side effect of the Suboxone. This may have been made worse by the use of the Lexapro and Effexor recently. I do not find anything alarming in regards to the joint pain, your inflammatory markers are low and normal. We would expect these to be elevated in a case of rheumatoid arthritis or inflammation in general. A side effect of Suboxone is also peripheral edema or swelling of the extremities which could explain some of the swelling sensation in your hands. We will try some anti-inflammatory medication called meloxicam daily to see if this helps with the joint pains. All discharge instructions reviewed with patient and/or family. Voiced understanding. Scripts Meloxicam (Meloxicam) 15 Mg Tablet 15 MG PO DAILY, #20 TAB Prov: BRYANNA RIVERO APRN 11/28/21 BRYANNA RIVERO APRN Nov 28, 2021 11:21
[2021-11-28 11:40] LABS: BASOPHILS % (AUTO) 1 % (0-10); EOSINOPHILS # (AUTO) 0.1 10^3/uL (0.0-0.3); EOSINOPHILS % (AUTO) 3 % (0-10); HEMATOCRIT 36 % (35-52); HEMOGLOBIN 12.4 g/dL (11.5-16.0); LYMPHOCYTES # (AUTO) 2.1 10^3/uL (1.0-4.0); LYMPHOCYTES % (AUTO) 52 % (12-44); MEAN CORPUSCULAR HEMOGLOBIN 28 pg (25-34); MEAN CORPUSCULAR HGB CONC 34 g/dL (32-36); MEAN CORPUSCULAR VOLUME 81 fL (80-99); MEAN PLATELET VOLUME 10.7 fL (9.0-12.2); MONOCYTES # (AUTO) 0.2 10^3/uL (0.0-1.0); MONOCYTES % (AUTO) 6 % (0-12); NEUTROPHILS # (AUTO) 1.6 10^3/uL (1.8-7.8); NEUTROPHILS % (AUTO) 39 % (42-75); PLATELET COUNT 238 10^3/uL (130-400)
[2021-11-28 11:47] LABS: CHLORIDE 108 MMOL/L (98-107); POTASSIUM 3.7 MMOL/L (3.6-5.0); SODIUM 144 MMOL/L (135-145)
--- NOTE | 2021-11-28 11:47 | Diagnostic Imaging Report ---
EXAMINATION: Chest, 1 view. HISTORY: Chest pain. Shortness of breath. COMPARISON: None available. FINDINGS: The lung volumes are normal. No focal consolidation is seen. No large pleural effusion or pneumothorax is seen. The cardiomediastinal silhouette is normal in size and contour. No acute osseous abnormality is seen. IMPRESSION: No acute pleuroparenchymal process. Dictated by: Dictated on workstation # [id number]
[2021-11-28 11:48] LABS: CALCIUM 9.1 MG/DL (8.5-10.1); GLUCOSE 88 MG/DL (70-105)
[2021-11-28 11:50] LABS: CARBON DIOXIDE 23 MMOL/L (21-32)
[2021-11-28 11:52] LABS: CREATININE SERUM 0.77 MG/DL (0.60-1.30); GFR ESTIMATED 108
[2021-11-28 11:53] LABS: BUN/CREATININE RATIO 23
[2021-11-28 12:19] LABS: ERYTHROCYTE SEDIMENTATION RATE 8 MM/HR (0-20)
[2021-11-28] MEDS ORDERED: MELO15TA39 PO (12:24)
[2021-11-28 12:35] VITALS: BP 131/95
== END 2021-11-28 12:35 | disposition home or self-care (01) ==
LOC: EDUNIT# 11:04 → ER 11:06
DX: M25.50 Pain in unspecified joint (principal); Z28.310 Unvaccinated for COVID-19
CPT/HCPCS: 36415; 71045; 80048; 84484; 84703; 85025; 85652; 86141; 93005

== ENCOUNTER 2022-05-25 13:57 | Emergency (ER) | payer MEDICAID ==
[~2022-05-25] VITALS: Ht 162.6 cm; Wt 95.7 kg
[~2022-05-25 13:57] MED LIST changes: +MELO15TA39 PO
--- NOTE | 2022-05-25 14:40 | ED GU-Female ---
General Chief Complaint: OB < 20 WEEKS Stated Complaint: 3-4 WEEKS | VAGINAL BLEEDING Nursing Triage Note: PT AMB TO ED BY POV WITH C/O VAGINAL BLEEDING, CRAMPING AND LEONE. PT HAS HAD POSITIVE TEST, BELIEVES LMP WAS SOMETIME BETWEEN MAR 21-. REPORTS SPOTTING BEGAN YESTERDAY, WAS A REDDISH BROWN COLOR. PT REPORTS SHE WAS ADVISED BY PCP TO COME TO ED IF BLEEDING INCREASED TODAY. DENIES DIZZINESS/LIGHTHEADEDNESS. Source: patient Exam Limitations: no limitations History of Present Illness Date Seen by Provider: May 25, 2022 Time Seen by Provider: 14:15 Initial Comments 27-year-old female presents with vaginal bleeding starting yesterday. States she had a positive test last week. States her last menstrual cycle was between March 21 and March 27, 2022. States she had hCG level drawn last Monday at the [facility] walk-in clinic and she was told that she was 3 to 4 weeks . She has not had an ultrasound yet. She reports brown-colored discharge when wiping yesterday, states today the color is now pink and she is complaining of mild lower abdominal cramping and lower back pain. Also reports headache that started on her drive here. Denies other abnormal discharge, fevers, dysuria, nausea/vomiting or any STI concerns. States she was treated for trichomonas in March, has not had follow-up testing. Timing/Duration: yesterday Severity/Quality: mild, cramping Location: other (lower abdomen and lower back) Allergies and Home Medications Allergies Coded Allergies: iodine (Unverified Allergy, Unknown, THROAT SWELLING, 07/19/21) shellfish derived (Verified Allergy, Unknown, SWOLLEN THROAT, 07/19/21) Patient Home Medication List Home Medication List Reviewed: Yes Docusate Sodium (Docusate Sodium) 100 Mg Capsule, 100 MG PO BID PRN for CONSTIPATION-1ST LINE Prescribed by: YEN MORILLO on 07/26/21 0725 Hydrocodone Bit/Acetaminophen (HYDROcodone/APAP 5 MG/325 MG TAB) 1 Tab Tab, 1-2 EA PO Q6HR PRN for PAIN-MODERATE (5-7) Prescribed by: YEN MORILLO on 07/26/21 0726 Ibuprofen (Ibu) 600 Mg Tablet, 600 MG PO Q6HR Prescribed by: YEN MORILLO on 07/26/21 0725 Meloxicam (Meloxicam) 15 Mg Tablet, 15 MG PO DAILY Prescribed by: BRYANNA RIVERO on 11/28/21 1224 Metronidazole (Metronidazole) 500 Mg Tablet, 500 MG PO BID Prescribed by: Jena Singh on 05/25/22 1648 Review of Systems Review of Systems Constitutional: see HPI Past Xqxlcha-Iooqkq-Mnldsr Hx Patient Social History Tobacco Use?: Yes Tobacco type used: Cigarettes Smoking Status: Current Everyday Smoker Use of E-Cig and/or Vaping dev: No Substance use?: No Alcohol Use?: No Pt feels they are or have been: No Immunizations Up To Date Tetanus Booster (TDap): Less than 5yrs PED Vaccines UTD: Yes Influenza Vaccine Up-to-Date: No; Not Current First/Initial COVID19 Vaccinat: none Second COVID19 Vaccination Felix: none Third COVID19 Vaccination Date: none Seasonal Allergies Seasonal Allergies: No Past Medical History Surgery/Hospitalization HX: C SECT Surgeries: Yes (WISDOM TEETH, 2X ) Section Respiratory: Yes (childhood) Asthma Currently Using CPAP: No Currently Using BIPAP: No Cardiac: No Neurological: Yes (WITH PAST HEROIN USE) Neuropathy, Stroke Reproductive Disorders: No Female Reproductive Disorders: Denies Sexually Transmitted Disease: Yes (2008 tric) HIV/AIDS: No Genitourinary: No Gastrointestinal: Yes Gastroesophageal Reflux, Chronic Constipation, Hemorrhoids Musculoskeletal: No Endocrine: No HEENT: No Cancer: No Psychosocial: Yes (suicide attempts 2014, HX HEROIN 1 YEAR AGO) Anxiety, Suicide Attempts, Depression Integumentary: No Blood Disorders: No Adverse Reaction/Blood Tranf: No Family Medical History BLOOD CLOTS 19 MOTHER Drug abuse 19 MOTHER FHx: cancer 19 MOTHER Myocardial infarction (PATERNAL SIDE OF FAMILY) PACEMAKER IN PLACE 19 MOTHER Physical Exam Vital Signs Vital Signs - First Documented 05/25/22 14:05 Temp 36.8 Pulse 83 Resp 18 B/P (MAP) 123/89 (100) Pulse Ox 98 O2 Delivery Room Air Capillary Refill : Less Than 3 Seconds Height, Weight, BMI Height: 5'4.00" Weight: 216lbs. 0.2oz. 97.050473sg; 36.00 BMI Method:Estimated General Appearance: WD/WN, no apparent distress Neck: supple, normal inspection Cardiovascular: regular rate, rhythm, no edema, no gallop, no JVD, no murmur Respiratory: chest non-tender, lungs clear, normal breath sounds, no respiratory distress, no accessory muscle use Pelvic: normal external exam; No discharge; vaginal bleeding (scant amount), other (Unable to locate cervix, scant amount of bleeding in vagina, no signs of proximal of conception, no discharge) Extremities: normal range of motion, normal inspection Neurologic/Psychiatric: alert, normal mood/affect, oriented x 3 Skin: normal color, warm/dry Progress/Results/Core Measures Suspected Sepsis SIRS Temperature: Pulse: 83 Respiratory Rate: 18 Laboratory Tests 05/25/22 14:50: White Blood Count 9.6 Blood Pressure 123 /89 Mean: 100 Laboratory Tests 05/25/22 14:50: Creatinine 0.93, Platelet Count 350, Total Bilirubin 0.2 Results/Orders Lab Results Laboratory Tests Test 05/25/22 14:35 05/25/22 14:50 05/25/22 16:14 Range/Units Urine Color YELLOW Urine Clarity CLEAR Urine pH 6.5 5-9 Urine Specific [place] 1.025 H 1.016-1.022 Urine Protein NEGATIVE NEGATIVE Urine Glucose (UA) NEGATIVE NEGATIVE Urine Ketones NEGATIVE NEGATIVE Urine Nitrite NEGATIVE NEGATIVE Urine Bilirubin NEGATIVE NEGATIVE Urine Urobilinogen 0.2 < = 1.0 MG/DL Urine Leukocyte Esterase TRACE H NEGATIVE Urine RBC (Auto) 3+ H NEGATIVE Urine RBC 10-25 H /HPF Urine WBC 2-5 /HPF Urine Squamous Epithelial Cells 5-10 /HPF Urine Crystals NONE /LPF Urine Bacteria FEW H /HPF Urine Casts NONE /LPF Urine Mucus NEGATIVE /LPF Urine Culture Indicated YES Urine Opiates Screen NEGATIVE NEGATIVE Urine Oxycodone Screen NEGATIVE NEGATIVE Urine Methadone Screen NEGATIVE NEGATIVE Urine Propoxyphene Screen NEGATIVE NEGATIVE Urine Barbiturates Screen NEGATIVE NEGATIVE Ur Tricyclic Antidepressants Screen POSITIVE H NEGATIVE Urine Phencyclidine Screen NEGATIVE NEGATIVE Urine Amphetamines Screen NEGATIVE NEGATIVE Urine Methamphetamines Screen NEGATIVE NEGATIVE Urine Benzodiazepines Screen NEGATIVE NEGATIVE Urine Cocaine Screen NEGATIVE NEGATIVE Urine Cannabinoids Screen NEGATIVE NEGATIVE White Blood Count 9.6 4.3-11.0 10^3/uL Red Blood Count 4.75 3.80-5.11 10^6/uL Hemoglobin 12.5 11.5-16.0 g/dL Hematocrit 38 35-52 % Mean Corpuscular Volume 81 80-99 fL Mean Corpuscular Hemoglobin 26 25-34 pg Mean Corpuscular Hemoglobin Concent 33 32-36 g/dL Red Cell Distribution Width 14.2 10.0-14.5 % Platelet Count 350 130-400 10^3/uL Mean Platelet Volume 9.7 9.0-12.2 fL Immature Granulocyte % (Auto) 1 % Neutrophils (%) (Auto) 66 42-75 % Lymphocytes (%) (Auto) 27 12-44 % Monocytes (%) (Auto) 5 0-12 % Eosinophils (%) (Auto) 1 0-10 % Basophils (%) (Auto) 0 0-10 % Neutrophils # (Auto) 6.3 1.8-7.8 10^3/uL Lymphocytes # (Auto) 2.6 1.0-4.0 10^3/uL Monocytes # (Auto) 0.5 0.0-1.0 10^3/uL Eosinophils # (Auto) 0.1 0.0-0.3 10^3/uL Basophils # (Auto) 0.0 0.0-0.1 10^3/uL Immature Granulocyte # (Auto) 0.1 0.0-0.1 10^3/uL Sodium Level 139 135-145 MMOL/L Potassium Level 4.1 3.6-5.0 MMOL/L Chloride Level 105 98-107 MMOL/L Carbon Dioxide Level 24 21-32 MMOL/L Anion Gap 10 5-14 MMOL/L Blood Urea Nitrogen 24 H 7-18 MG/DL Creatinine 0.93 0.60-1.30 MG/DL Estimat Glomerular Filtration Rate 85 BUN/Creatinine Ratio 26 Glucose Level 79 70-105 MG/DL Calcium Level 9.2 8.5-10.1 MG/DL Corrected Calcium 9.0 8.5-10.1 MG/DL Total Bilirubin 0.2 0.1-1.0 MG/DL Aspartate Amino Transf (AST/SGOT) 17 5-34 U/L Alanine Aminotransferase (ALT/SGPT) 24 0-55 U/L Alkaline Phosphatase 72 40-136 U/L Total Protein 7.6 6.4-8.2 GM/DL Albumin 4.3 3.2-4.5 GM/DL Human Chorionic Gonadotropin, Quant 7718 H <5 MIU/ML Micro Results Microbiology 05/25/22 Wet Prep - Final, Complete My Orders Orders - JENA SINGH APRN Ua Culture If Indicated (05/25/22 14:14) Urine Bedside (05/25/22 14:14) Cbc With Automated Diff (05/25/22 14:32) Hcg,Quantitative (05/25/22 14:32) Comprehensive Metabolic Panel (05/25/22 14:32) Drug Screen Stat (Urine) (05/25/22 14:34) Us Ob<14 Wks Sngle W/Transvag (05/25/22 14:32) Urine Culture (05/25/22 14:35) Wet Prep (05/25/22 16:14) Neisseria Gonorrhea Swab (05/25/22 16:14) Chlamydia Trachomatis Swab (05/25/22 16:14) Metronidazole Tablet (Flagyl Tablet) (05/25/22 16:45) Vital Signs/I&O Capillary Refill : Less Than 3 Seconds Blood Pressure Mean: 100 Progress Note #1: Time: 14:41 Progress Note Patient seen and evaluated, resting comfortably on the bed, no acute distress, well-appearing. Based on exam and symptoms, differential diagnosis includes spontaneous/threatened , ectopic , subchorionic hemorrhage, molar , cystitis, PID, STIs. Work-up initiated for vaginal bleeding during , CBC, CMP, hCG, UA. Progress Note #2: Time: 16:16 Progress Note Lab results and ultrasound reviewed, CBC grossly normal, CMP grossly normal, urinalysis negative for infection, hCG today was 7718. Contacted the [facility] clinic for previous hCG level, previous levels drawn on 05/17 and was 5537. Ultrasound reveals gestational sac measuring 6 weeks, no cardiac activity. Results discussed with patient. Pelvic exam completed, with SHELLI Munoz door assembler. Unable to locate the cervix, scant amount of blood in the vagina, no discharge noted, no evidence of products of conception. Swabs obtained for wet mount and gonorrhea/chlamydia. Progress Note #3: Time: 16:45 Progress Note Wet prep reviewed, positive for white blood cells and clue cells, concerning for bacterial vaginosis. First time dose of Flagyl ordered here, prescription sent to [facility] per patient request. Patient instructed to complete full course of antibiotic, instructed to call clinic for follow-up ultrasound and hCG level, instructions for vaginal rest provided. Return precautions provided. Diagnostic Imaging Diagonstic Imaging: Ultrasound Plain Films/CT/US/NM/MRI: abdomen Comments [facility] [place], [place] NAME: JUANJOSE WORKMAN [facility] REC#: [id number] PT STATUS: DEP ER : 1995 PHYSICIAN: JENA SINGH APRN ADMIT DATE: 05/25/22/ER Signed Date of Exam:05/25/22 US OB<14 WKS SNGLE W/TRANSVAG INDICATION: Vaginal bleeding during . Ultrasonography reveals [place]zada intrauterine gestational sac within the lower uterine segment. pole is present with crown-rump length measurement of 0.3 cm. Cardiac activity cannot be visualized. No significant hemorrhage is identified. There is no evidence of gestational sac morphologic abnormality. No maternal adnexal region abnormality is documented. IMPRESSION: Findings suggest early intrauterine gestation with estimated age of 6 weeks. Cardiac activity was not visible in the embryo at this time and clinical correlation and possible short-term ultrasound followup would be of use. Dictated by: Dictated on workstation # [id number] Dict: 05/25/22 1546 Trans: 05/25/22 1729 CV [id number] Interpreted by: NELLIE TUCKER MD Electronically signed by: NELLIE TUCKER MD 05/25/22 1729 Departure Impression Primary Impression: Vaginal bleeding before 22 weeks gestation Additional Impression: Bacterial vaginosis in Disposition: 01 HOME, SELF-CARE Condition: Stable Departure-Patient Inst. Decision time for Depature: 16:48 Referrals: [facility] [place]) Primary Care Physician Patient Instructions: Bacterial Vaginosis (DC), Bleeding in Early (DC) Add. Discharge Instructions: Take antibiotic as prescribed, complete full course of antibiotic even if you b egin to feel better. Follow-up with your SENIOR CATEGORY MANAGER, call them in the morning to schedule a follow-up appointment for an ultrasound and an hCG level blood draw. Vaginal rest at this time, no intercourse, do not insert anything into the vagina. You will receive a phone call if your gonorrhea/chlamydia test is positive, otherwise you may not get a phone call if it is normal. Return if you have severe pain, heavy bleeding greater than 1 pad per hour or large clots, lightheadedness, shortness of breath, high fever, or any other new, concerning, or worsening symptoms. All discharge instructions reviewed with patient and/or family. Voiced un derstanding. Scripts Metronidazole (Metronidazole) 500 Mg Tablet 500 MG PO BID for 7 Days, #13 TAB 0 Refills Prov: JENA SINGH APRN 05/25/22 JENA SINGH APRN May 25, 2022 14:40
[2022-05-25 14:57] LABS: BASOPHILS % (AUTO) 0 % (0-10); EOSINOPHILS # (AUTO) 0.1 10^3/uL (0.0-0.3); EOSINOPHILS % (AUTO) 1 % (0-10); HEMATOCRIT 38 % (35-52); HEMOGLOBIN 12.5 g/dL (11.5-16.0); LYMPHOCYTES # (AUTO) 2.6 10^3/uL (1.0-4.0); LYMPHOCYTES % (AUTO) 27 % (12-44); MEAN CORPUSCULAR HEMOGLOBIN 26 pg (25-34); MEAN CORPUSCULAR HGB CONC 33 g/dL (32-36); MEAN CORPUSCULAR VOLUME 81 fL (80-99); MEAN PLATELET VOLUME 9.7 fL (9.0-12.2); MONOCYTES # (AUTO) 0.5 10^3/uL (0.0-1.0); MONOCYTES % (AUTO) 5 % (0-12); NEUTROPHILS # (AUTO) 6.3 10^3/uL (1.8-7.8); NEUTROPHILS % (AUTO) 66 % (42-75); PLATELET COUNT 350 10^3/uL (130-400); WHITE BLOOD COUNT 9.6 10^3/uL (4.3-11.0)
[2022-05-25 15:03] LABS: BILIRUBIN,URINE NEGATIVE (NEGATIVE); CLARITY,URINE CLEAR; COLOR,URINE YELLOW; GLUCOSE, URINE (UA) NEGATIVE (NEGATIVE); KETONES,URINE NEGATIVE (NEGATIVE); LEUKOCYTE ESTERASE ,URINE TRACE (NEGATIVE); NITRITE,URINE NEGATIVE (NEGATIVE); PH,URINE 6.5 (5-9); PROTEIN,URINE NEGATIVE (NEGATIVE)
[2022-05-25 15:15] LABS: ALBUMIN 4.3 GM/DL (3.2-4.5); POTASSIUM 4.1 MMOL/L (3.6-5.0)
[2022-05-25 15:15] LABS: AMPHETAMINE SCREEN, URINE NEGATIVE (NEGATIVE); BARBITURATE SCREEN URINE NEGATIVE (NEGATIVE); BENZODIAZEPINES SCREEN URINE NEGATIVE (NEGATIVE); CANNABINOID SCREEN, URINE NEGATIVE (NEGATIVE); COCAINE SCREEN URINE NEGATIVE (NEGATIVE); METHADONE STAT NEGATIVE (NEGATIVE); OPIATE SCREEN URINE NEGATIVE (NEGATIVE); OXYCODONE STAT NEGATIVE (NEGATIVE); PROPOXYPHENE STAT NEGATIVE (NEGATIVE); TRICYCLIC ANTIDEPRESSANTS SCRE POSITIVE (NEGATIVE)
[2022-05-25 15:16] LABS: CALCIUM 9.2 MG/DL (8.5-10.1)
[2022-05-25 15:17] LABS: TOTAL PROTEIN 7.6 GM/DL (6.4-8.2)
[2022-05-25 15:17] LABS: BACTERIA,URINE FEW /HPF
[2022-05-25 15:19] LABS: BILIRUBIN,TOTAL 0.2 MG/DL (0.1-1.0)
[2022-05-25 15:21] LABS: CREATININE SERUM 0.93 MG/DL (0.60-1.30)
--- NOTE | 2022-05-25 15:49 | Diagnostic Imaging Report ---
INDICATION: Vaginal bleeding during . Ultrasonography reveals quezada intrauterine gestational sac within the lower uterine segment. pole is present with crown-rump length measurement of 0.3 cm. Cardiac activity cannot be visualized. No significant hemorrhage is identified. There is no evidence of gestational sac morphologic abnormality. No maternal adnexal region abnormality is documented. IMPRESSION: Findings suggest early intrauterine gestation with estimated age of 6 weeks. Cardiac activity was not visible in the embryo at this time and clinical correlation and possible short-term ultrasound followup would be of use. Dictated by: Dictated on workstation # [id number]
[2022-05-25] MEDS ORDERED: metroNIDAZOLE 500 MG (FLAGYL) TAB PO ONE (16:45)
[2022-05-25] MEDS ORDERED: METR-145 PO (16:48)
[2022-05-25 17:03] VITALS: BP 119/78
== END 2022-05-25 17:04 | disposition home or self-care (01) ==
LOC: EDUNIT# 13:57 → ER 13:59
DX: O20.9 Hemorrhage in early pregnancy, unspecified (principal); O23.591 Infection of other part of genital tract in pregnancy, first trimester; O99.331 Smoking (tobacco) complicating pregnancy, first trimester; F17.210 Nicotine dependence, cigarettes, uncomplicated; Z28.310 Unvaccinated for COVID-19; Z3A.01 Less than 8 weeks gestation of pregnancy
CPT/HCPCS: 36415; 76801; 76817; 80053; 80306; 81000; 84702; 84703; 85025; 87088; 87210; 87491; 87591

== ENCOUNTER 2022-07-06 09:17 | Outpatient (CLI) | payer MEDICAID ==
[~2022-07-06] VITALS: Ht 167.7 cm; Wt 102.6 kg
[2022-07-06] MEDS ORDERED: ESCI20TA PO (11:55)
[2022-07-06] MEDS ORDERED: TRAZ-227 PO (12:01)
[2022-07-06] MEDS ORDERED: AMOX250C PO (12:01)
[2022-07-06] MEDS ORDERED: FERR325T18 PO (12:01)
[2022-07-06] MEDS ORDERED: NALT380S2 IM (12:01)
[2022-07-07] MEDS ORDERED: IBUP-1773 PO (07:21)
== END 2022-07-06 12:09 | disposition home or self-care (01) ==
LOC: PREOP 09:17
PROVIDERS: ATTEND Obstetrics & Gynecology
DX: Z01.818 Encounter for other preprocedural examination (principal)

== ENCOUNTER 2022-07-07 06:05 | Day surgery (SDC) | payer MEDICAID ==
[2022-07-07] VITALS (10 sets, daily range): BP systolic 91–129; BP diastolic 50–81
[~2022-07-07] VITALS: Ht 167.7 cm; Wt 102.6 kg
[~2022-07-07 06:05] MED LIST changes: +AMOX250C PO; +ESCI20TA PO; +NALT380S2 IM; +TRAZ-227 PO
[2022-07-07] MEDS ORDERED: LACTATED RINGERS 1,000 ML IV PRN (06:30)
[2022-07-07 07:05] LABS: BASOPHILS % (AUTO) 0 % (0-10); EOSINOPHILS # (AUTO) 0.2 10^3/uL (0.0-0.3); EOSINOPHILS % (AUTO) 3 % (0-10); HEMATOCRIT 30 % (35-52); HEMOGLOBIN 9.9 g/dL (11.5-16.0); LYMPHOCYTES # (AUTO) 2.5 10^3/uL (1.0-4.0); LYMPHOCYTES % (AUTO) 41 % (12-44); MEAN CORPUSCULAR HEMOGLOBIN 27 pg (25-34); MEAN CORPUSCULAR HGB CONC 33 g/dL (32-36); MEAN CORPUSCULAR VOLUME 84 fL (80-99); MEAN PLATELET VOLUME 10.4 fL (9.0-12.2); MONOCYTES # (AUTO) 0.3 10^3/uL (0.0-1.0); MONOCYTES % (AUTO) 6 % (0-12); NEUTROPHILS # (AUTO) 3.1 10^3/uL (1.8-7.8); NEUTROPHILS % (AUTO) 51 % (42-75); PLATELET COUNT 261 10^3/uL (130-400); WHITE BLOOD COUNT 6.2 10^3/uL (4.3-11.0)
[2022-07-07] MEDS ORDERED: MIDAZOLAM 2 MG/2 ML (VERSED) VIAL ONE (07:12)
[2022-07-07] MEDS ORDERED: fentaNYL INJ 100 MCG/2 ML AMP ONE (07:12)
[2022-07-07] MEDS ORDERED: ONDANSETRON 4 MG/2 ML (SDV) Z0FRAN ONE (07:14)
[2022-07-07] MEDS ORDERED: proPOfol 200 MG/20 ML (DIPRIVAN) VIAL IV ONE (07:14)
[2022-07-07] MEDS ORDERED: LIDOCAINE PF 2% 5 ML (XYLOCAINE) VIAL ONE (07:14)
--- NOTE | 2022-07-07 07:16 | Progress Note-Pre Operative ---
Pre-Operative Progress Note Date of Available H&P: Jul 07, 2022 Date H&P Reviewed: Jul 07, 2022 Time H&P Reviewed: 07:05 History & Physical: H&P Reviewed, Patient Examed, No changes noted Pre-Operative Diagnosis: Missed Ab YEN MORILLO DO Jul 07, 2022 07:16
[2022-07-07 07:17] LABS: AMPHETAMINE SCREEN, URINE NEGATIVE (NEGATIVE); BARBITURATE SCREEN URINE NEGATIVE (NEGATIVE); BENZODIAZEPINES SCREEN URINE NEGATIVE (NEGATIVE); CANNABINOID SCREEN, URINE NEGATIVE (NEGATIVE); COCAINE SCREEN URINE NEGATIVE (NEGATIVE); METHADONE STAT NEGATIVE (NEGATIVE); OPIATE SCREEN URINE NEGATIVE (NEGATIVE); OXYCODONE STAT NEGATIVE (NEGATIVE); PROPOXYPHENE STAT NEGATIVE (NEGATIVE); TRICYCLIC ANTIDEPRESSANTS SCRE NEGATIVE (NEGATIVE)
--- NOTE | 2022-07-07 07:20 | Discharge Inst-Women's Service ---
Discharge Inst-Women's Serv Depart Medication/Instructions New, Converted or Re-Newed RX: Transmitted to Pharmacy Problems Reviewed?: Yes Consults/Follow Up Additional Follow Up: Yes Activity Activity: Activity as Tolerated Driving Instructions: No Driving for 1 Week NO SMOKING: NO SMOKING Nothing Inside Vagina: No Douching, No [place], No Tampons Diet Discharge Diet: No Restrictions Symptoms to Report to : Bleeding Excessive, Pain Increased, Fever Over 101 Degrees F, Vaginal Bleeding Increase, Questions/Concerns For Any Problems or Questions: Contact Your Physician YEN MORILLO DO Jul 07, 2022 07:20
[2022-07-07] MEDS ORDERED: IBUP-1773 PO (07:21)
[2022-07-07] MEDS ORDERED: ONDANSETRON 4 MG/2 ML (SDV) Z0FRAN IVP PRN ×2 (07:30→08:00)
[2022-07-07] MEDS ORDERED: D5 LR IV SOLUTION 1,000 ML IV SCH (07:30)
[2022-07-07] MEDS ORDERED: KETOROLAC 30 MG/ML VIAL IVP ONE (07:30)
[2022-07-07] MEDS ORDERED: SEVOFLURANE (ULTANE) 15 ML INHAL SOLN ONE (08:03)
[2022-07-07] MEDS ORDERED: KETOROLAC 30 MG/ML VIAL ONE (08:03)
--- NOTE | 2022-07-07 09:23 | OPERATIVE REPORT ---
DATE OF SERVICE: 07/07/2022 PREOPERATIVE DIAGNOSIS: A 27-year-old female with missed AB. POSTOPERATIVE DIAGNOSIS: A 27-year-old female with missed AB. PROCEDURE: Suction D and C. SURGEON: Yen Morillo DO ANESTHESIA: LMA general. ESTIMATED BLOOD LOSS: 300 mL. URINE: 100 mL clear, drained at the start of the procedure. FLUIDS: 800 mL of lactated Ringer's solution. FINDINGS: Small to moderate amount of products of conception. SPECIMEN SENT: Products of conception. INDICATIONS FOR PROCEDURE: This 27-year-old female is a patient that is consulted to my office from [facility] after finding of a blighted ovum on ultrasound. There was no pole developed; however, gestational sac was visualized. This did not resolved and she had a falling hCG. Due to these considerations, the patient was diagnosed with missed AB and sent to my office due to the fact that she now had passed the , to proceed with suction D and C. I discussed with the patient in detail in the preoperative visit, the risks of the procedure after all her questions were answered, she was agreeable to proceed. Consent was obtained. The patient was taken to the operating room. OPERATIVE REPORT IN DETAIL: Once in the operating room, anesthesia was administered and found to be adequate. She was placed in dorsal lithotomy position, prepped and draped in normal sterile fashion. A timeout was performed. Straight catheterization was performed. A weighted speculum was inserted to the patient's vagina. Right angle retractor was used to visualize the cervix, was grasped at 12 o'clock position using a long Allis clamp. I then gently sound the uterine cavity depth was found to be 8 cm. I then gently dilated the cervix using Hanks dilators to maximum dilatation of 1 cm, at which point I advanced a #8 rigid Danny suction curette into the uterus where I applied [place] suction to a maximum suction of 70 mmHg and then methodically cleared out the endometrial cavity of all products of conception by rotating the suction curette. This was done on several different passes. There is a gentle sharp curettage that I performed and then I make one final pass with the suction curette, little to no bleeding was noted at that point and then removed all instruments from the patient's vagina. The patient tolerated the procedure well and was taken to recovery area in stable condition. Lap and sponge counts were correct at the end of the procedure. Instrument counts were correct as well. Job ID: [id number] DocumentID: [id number] Dictated Date: 07/07/2022 07:57:53 Warping Mill Operator Date: 07/07/2022 09:21:00 Dictated By: YEN MORILLO DO
--- NOTE | 2022-07-07 09:37 | Anesthesia-General Post-Op ---
General Patient Condition Mental Status/LOC: Same as Preop Cardiovascular: Satisfactory Nausea/Vomiting: Absent Respiratory: Satisfactory Pain: Controlled Complications: Absent Post Op Complications Complications None Follow Up Care/Instructions Patient Instructions None needed. Anesthesia/Patient Condition Patient Condition Patient is doing well, no complaints, stable vital signs, no apparent adverse anesthesia problems. No complications reported per nursing. D/C home per [facility] Criteria: Yes CHELSEA LARSEN CRNA Jul 07, 2022 09:37
== END 2022-07-07 09:40 | disposition home or self-care (01) ==
LOC: SDC 06:05
PROVIDERS: ATTEND Obstetrics & Gynecology
DX: O02.1 Missed abortion (principal); F17.290 Nicotine dependence, other tobacco product, uncomplicated
CPT/HCPCS: 36415; 80306; 85025; 86850; 86900; 86901; 87081; 88305